=== PATIENT | female | born 1945 | race Caucasian/White ===

== ENCOUNTER → 2020-07-14 | Outpatient (CLI) | payer MEDICARE, BC, SELFPAY ==
[2020-07-14 14:49] VITALS: BMI 23.8
== END | disposition home or self-care (01) ==
PROVIDERS: PCP Family Medicine; Referring Provider Nurse Practitioner Women's Health; Visit Provider Nurse Practitioner Women's Health
DX: N39.0 Urinary tract infection, site not specified (principal)
CPT/HCPCS: 87077; 87086; 87088; 87186

== ENCOUNTER 2020-08-24 13:33 | Emergency (ER) | payer MEDICARE, BC, SELFPAY ==
[2020-08-24 13:35] VITALS: BP 133/79; PULSE 90; RESP 16; TEMP 36.6; O2SAT 94; BMI 24.0
--- NOTE | 2020-08-24 13:48 | ED.VIS.GEN ---
History of Present Illness Chief Complaint: Diarrhea Informant: Patient Narrative: 75-year-old female presenting with diarrhea. Her diarrhea was initially watery and started about Tuesday of last week. This makes her symptoms about 5 days. Patient took Imodium for the last 2 days and her diarrhea is resolving. She states that she is getting some stomach cramping. She has decreased appetite without nausea or vomiting. Patient does state that she was on antibiotics May for a UTI as well as a dental infection. Patient denies fever, chills. Patient has no urinary complaints. - Past Medical History (1) HTN (hypertension) Status: Chronic Past Medical History - Allergies and Home Meds Allergies/Adverse Reactions: Allergies lisinopril Allergy (Verified 08/24/20 13:38) Other Primary Care Physician: Jose Garay III, MD [Primary Care Provider] - Prior records reviewed: Yes Past Medical History: - - Reviewed in problem list Surgical History: - Lives: With Family Smoking Status: Former smoker Alcohol: None Drugs: None - Family History Maternal Family History: Family History (Last Updated 07/14/20 @ 14:54 by Stephanie Lagunas) Mother Heart disease Lung cancer Father Bladder cancer Family History: Reports: - - mother with heart problems cabg, lung cancer Paternal Family History: Family History (Last Updated 07/14/20 @ 14:54 by Stephanie Lagunas) Mother Heart disease Lung cancer Father Bladder cancer Family History: Reports: - - father with strokes Review of Systems General: Denies: Chills, Fever, Sweats Eyes: Denies: Visual changes - bilaterally, Diplopia ENT: Denies: Rhinorrhea, Sore throat Cardiovascular: Denies: Chest pain, Palpitations Respiratory: Denies: Dyspnea, Cough, Dyspnea on exertion Gastrointestinal: Reports: Abdominal pain - Cramping, Diarrhea, Constipation, - - Decreased appetite. Denies: Nausea, Vomiting Genitourinary: Denies: Dysuria, Hematuria, Frequency Musculoskeletal: Denies: Myalgias, Back pain, Extremity Pain Skin: Denies: Rash, Wounds Neurological: Denies: Headache, Weakness, Numbness Endocrine: Denies: Polyuria, Polydipsia Physical Exam Vital Signs/Narrative: Vital Signs Temp Pulse Resp BP Pulse Ox 08/24/20 13:35 97.9 F 90 16 133/79 H 94 Inital Vital Signs reviewed: Yes General: Well nourished, No Acute Distress Head: Normocephalic, Atraumatic Eyes: Perrl, EOMI. Negative for: Scleral icterus ENT: Moist mucous membranes, No rhinorrhea Cardiovascular: Regular rate, Regular rhythm Respiratory: No distress, CTA bilaterally Abdomen: Soft, Nontender, Nondistended Extremities: Nontender, No edema Skin: Normal color, No rash Neurological: Alert, Oriented x3, Cranial nerves II-XII grossly intact Psychological: Normal affect, Normal Mood Diagnostic/Tx/Re-eval Laboratory Data 08/24/20 08/24/20 14:05 14:05 WBC 11.4 H RBC 4.33 Hgb 12.3 Hct 35.7 L MCV 82.4 MCH 28.4 MCHC 34.5 RDW Std Deviation 36.1 RDW Coeff of Vilma 11.9 Plt Count 320 MPV 10.1 Immature Gran % (Auto) 0.800 Neut % (Auto) 79.5 H Lymph % (Auto) 6.2 L [place] % (Auto) 12.5 H Eos % (Auto) 0.2 Baso % (Auto) 0.8 Absolute Neuts (auto) 9.1 H Absolute Lymphs (auto) 0.71 L Nucleated RBC % 0 Sodium 126 L Potassium 2.4 L* Chloride 89 L Carbon Dioxide 29.0 Anion Gap 8 BUN 8 Creatinine 0.59 Estim Creat Clear Calc 40.21 Est GFR (MDRD) Af Amer 128 Est GFR (MDRD) Non-Af 106 BUN/Creatinine Ratio 13.6 Glucose 158 H Calcium 8.7 Magnesium 1.9 Total Bilirubin 0.60 AST 23 ALT 18 Alkaline Phosphatase 74 Total Protein 6.5 Albumin 2.7 L Globulin 3.8 Albumin/Globulin Ratio 0.7 L - Medical Decision Making 75-year-old female with recent history of diarrhea which is now improving presenting for stomach cramping. Her vital signs are stable and she is afebrile. Her physical exam is normal and she has no reproducible abdominal pain. She states that her diarrhea has turned into constipation after taking Imodium x2 2 days ago, and Imodium x1 yesterday. She does states that she is having bowel movements. No fevers, chills, nausea, vomiting. Lab work is significant for hypokalemia with a potassium of 2.4. She will be given 40 mEq IV as well as 40 mEq p.o. and then discharged home with 1 more dose for tomorrow. I did discuss with her that she should probably stop taking the Imodium and see if she starts having better bowel movements as replacing her potassium may help. She is amenable this plan and she will follow up with her PCP. Impression: 1. Abdominal cramping 2. Hypokalemia ED Disposition - Plan for ED Patient: Prescriptions: Potassium Chloride 40 meq PO X1 #1 capsule.er Transmission Status: Pending to [facility]/pharmacy #[id number] Referrals: Jose Garay III, MD [Primary Care Provider] -
[2020-08-24 14:14] LABS: Absolute Lymphocyte Count 0.71 X10^3/uL (0.83-4.51); Absolute Neutrophil Count 9.1 X10^3/uL (2.0-7.7); Basophil# 0.09 X10^3/uL; Basophil% 0.8 % (0-1); Eosinophil# 0.02 X10^3/uL; Eosinophils% 0.2 % (0-5); Hematocrit 35.7 % (37-47); Hemoglobin 12.3 g/dL (12.0-15.0); Lymphocyte # 0.71 X10^3/ul (4.0); Lymphocyte % 6.2 % (19-41); Mean Corp Hgb Conc 34.5 g/dL (32-36); Mean Corpuscular Hgb 28.4 pg (27.0-32.0); Mean Corpuscular Volume 82.4 fL (81-99); Mean Platelet Vol. 10.1 fl (6.2-12.0); Monocyte# 1.42 X10^3/uL; Monocyte% 12.5 % (0-10); NRBC Flagged by Analyzer 0 % (0-5); Neutrophil # 9.05 X10^3/uL (2.7-7.7); Neutrophil % 79.5 % (47-70); Platelet Count 320 K/mm3 (150-450); RBC Distribution Width CV 11.9 % (11.6-14.6); RBC Distribution Width SD 36.1 fl (35.1-43.9); Red Blood Count 4.33 M/mm3 (4.2-5.4); White Blood Count 11.4 K/mm3 (4.4-11.0)
[2020-08-24 14:35] LABS: ALB/GLOB Ratio 0.7 RATIO (0.9-2.4); AST(SGOT) 23 U/L (15-37); Alanine Aminotransfer ALT/SGPT 18 U/L (13-56); Albumin, Serum 2.7 g/dL (3.2-5.0); Alkaline Phosphatase 74 U/L (45-117); Anion Gap 8 (5-15); BUN 8 mg/dL (7-18); BUN/Creat Ratio 13.6 RATIO (10-20); Calcium,Total 8.7 mg/dL (8.5-10.1); Chloride 89 mmol/L (98-107); Creatinine, Serum 0.59 mg/dL (0.55-1.02); EST Glomerular Filtration Rate 106 mL/min (>60); Est Glom Filt Rate - Afr Amer 128 mL/min (>60); Estimated Creatinine Clearance 40.21 ml/min; Globulin 3.8 g/dL (2.2-4.2); Glucose 158 mg/dL (74-106); Magnesium 1.9 mg/dL (1.6-2.6); Potassium 2.4 mmol/L (3.5-5.1); Protein, Total 6.5 g/dL (6.4-8.2); Sodium Level 126 mmol/L (136-145)
[2020-08-24 16:00] VITALS: BP 115/61; PULSE 82; RESP 16; O2SAT 91
[2020-08-24] MEDS: Potassium Chloride 10mEq/100mL 10 MEQ/100 ML IV.SOLN. 100 MEQ IV BOLUS ×4 (17:57→20:55)
[2020-08-24 18:06] VITALS: RESP 16
[2020-08-24 20:00] VITALS: BP 115/67; PULSE 74; RESP 15; O2SAT 92
--- NOTE | 2020-08-25 11:39 | ED.RN ---
PER DR RUBY, POTASSIUM CHLORIDE 40MEQ PO X1 DOSE CALLED TO [facility] ON [facility]
== END 2020-08-24 22:12 | disposition home or self-care (01) ==
PROVIDERS: Emergency Provider Student in an Organized Health Care Education/Training Program; PCP Family Medicine
DX: R10.9 Unspecified abdominal pain (principal); E87.6 Hypokalemia; R19.7 Diarrhea, unspecified; K59.00 Constipation, unspecified; I10 Essential (primary) hypertension; Z87.440 Personal history of urinary (tract) infections; Z87.891 Personal history of nicotine dependence
CPT/HCPCS: 80053; 83735; 85025; 96361; 96365; 96366; 99282; J7030; A4216

== ENCOUNTER 2020-09-28 12:07 | Inpatient (IN) | payer MEDICARE, BC, SELFPAY ==
[2020-09-22 10:57] VITALS: BMI 23.2
[2020-09-28] VITALS (10 sets, daily range): BP systolic 137–167; BP diastolic 83–106; PULSE 104–121; RESP 13–24; TEMP 36.4–36.9; O2SAT 95–99; BMI 24.7; BMI 22.1
--- NOTE | 2020-09-28 12:14 | CT_ITS ---
STUDY: CT BRAIN WITHOUT CONTRAST REASON FOR EXAM: Female, 75 years old. Altered mental status. Amnesia. Stroke alert. RADIATION DOSAGE (If Supplied By Facility): CTDIvol = ( 45 ) mGy, DLP = ( 779 ) mGycm TECHNIQUE: Transaxial CT imaging of the brain was performed without administration of intravenous contrast material. Individualized dose optimization techniques were used for this CT. COMPARISON: 06/24/15 FINDINGS: There is no acute bleed or infarct. There are stable chronic ischemic and atrophic changes. The ventricles are normal in configuration. There is no hydrocephalus. The visualized paranasal sinuses are clear. The mastoid air cells are well aerated. There is no skull fracture. CT/STROKE Brain/Head without Cont IMPRESSION: Stable chronic ischemic and atrophic changes. No acute intracranial abnormality. N.B. : The above information has been verbally conveyed by Yusef Bobo MD to Rigo Watson on 09/28/2020 12:57:08 (ET). Electronically Signed: Yusef Bobo MD at 12:58 EST Tel , Service support ,
--- NOTE | 2020-09-28 12:14 | EKG12_ITS ---
Test Reason : NEURO Blood Pressure : / mmHG Vent. Rate : 102 BPM Atrial Rate : 102 BPM P-R Int : 136 ms QRS Dur : 094 ms QT Int : 374 ms P-R-T Axes : 041 051 041 degrees QTc Int : 487 ms Sinus tachycardia with occasional Premature ventricular complexes and Fusion complexes Otherwise normal ECG Confirmed by JOSEPH LOCKWOOD, NESTOR ([id number]), health editor JOSE G DUMONT ([id number]) on 09/29/2020 1:10:34 PM Referred By: MR Confirmed By:NESTOR RUIZ MD
--- NOTE | 2020-09-28 12:30 | RAD_ITS ---
STUDY: X-RAY CHEST REASON FOR EXAM: Female, 75 years old. Altered mental status TECHNIQUE: Frontal view of the chest COMPARISON: None. FINDINGS: The lungs are clear. There are no pleural effusions. There is no pneumothorax. The heart is normal in size. The visualized osseous structures are within normal limits. RAD/Chest 1 View IMPRESSION: No acute thoracic pathology. Electronically Signed: Yusef Bobo MD at 12:51 EST Tel , Service support ,
--- NOTE | 2020-09-28 12:36 | NUR.TO.PHY ---
DAUGHTER ARIADNA SULLIVAN CALLED AND LEFT NUMBER FOR ANY QUESTIONS. HER NUMBER IS [phone]
[2020-09-28 12:42] LABS: Absolute Lymphocyte Count 1.53 X10^3/uL (0.83-4.51); Absolute Neutrophil Count 5.1 X10^3/uL (2.0-7.7); Basophil# 0.04 X10^3/uL; Basophil% 0.6 % (0-1); Eosinophil# 0.01 X10^3/uL; Eosinophils% 0.1 % (0-5); Hematocrit 42.3 % (37-47); Hemoglobin 13.6 g/dL (12.0-15.0); Lymphocyte # 1.53 X10^3/ul (4.0); Lymphocyte % 21.3 % (19-41); Mean Corp Hgb Conc 32.2 g/dL (32-36); Mean Corpuscular Hgb 28.8 pg (27.0-32.0); Mean Corpuscular Volume 89.6 fL (81-99); Mean Platelet Vol. 10.4 fl (6.2-12.0); NRBC Flagged by Analyzer 0 % (0-5); Neutrophil # 5.09 X10^3/uL (2.7-7.7); Neutrophil % 70.9 % (47-70); Platelet Count 251 K/mm3 (150-450); RBC Distribution Width CV 13.6 % (11.6-14.6); RBC Distribution Width SD 44.6 fl (35.1-43.9); Red Blood Count 4.72 M/mm3 (4.2-5.4); White Blood Count 7.2 K/mm3 (4.4-11.0)
[2020-09-28 12:44] LABS: Anion Gap 8 (5-15); BUN 15 mg/dL (7-18); BUN/Creat Ratio 22.5 RATIO (10-20); Calcium,Total 9.6 mg/dL (8.5-10.1); Chloride 107 mmol/L (98-107); Creatinine, Serum 0.67 mg/dL (0.55-1.02); EST Glomerular Filtration Rate 91 mL/min (>60); Est Glom Filt Rate - Afr Amer 111 mL/min (>60); Estimated Creatinine Clearance 40.21 ml/min; Glucose 123 mg/dL (74-106); Potassium 3.2 mmol/L (3.5-5.1); Sodium Level 140 mmol/L (136-145)
[2020-09-28 12:46] LABS: Prothrombin Time (Protime)PT. 12.4 SECONDS (11.7-14.9)
[2020-09-28 12:47] LABS: Partial Thromboplast Time 29.7 Seconds (24.1-36.2)
[2020-09-28 13:24] LABS: Mucous, Urine 0 SEEN /hpf (<or=2+); Red Blood Cells-Urine 0 SEEN /hpf (0-5); Squamous Epithelial Cells - UA 0 SEEN /hpf (5-10); White Blood Cells 0 SEEN /hpf (0-5)
[2020-09-28 13:28] LABS: Color, Urine Yellow (Yellow); Glucose, Dipstick Normal (Normal); Ketone-Dipstick 5 mg/dl (Negative); Leukocyte Esterase-Dipstick Negative /ul (Negative); Nitrite-Dipstick Positive (Negative); Occult Blood-Urine 50 /ul (Negative); Protein-Dipstick 15 mg/dl (Negative); Urine Bilirubin Dipstick Negative (Negative); Urine Clarity Clear (Clear); Urine Urobilinogen Normal (Normal)
[2020-09-28 13:47] LABS: Bacteria 2+ /hpf (None Seen)
--- NOTE | 2020-09-28 14:04 | NURSING ---
DR ADOLPH CAI
--- NOTE | 2020-09-28 14:06 | ED.VIS.GEN ---
History of Present Illness Chief Complaint: Neuro S/Sx Narrative: Patient presenting secondary to amnesia. Patient has a underlying history of hypertension. She also has a prior history of transient global amnesia back in 2014 with a negative work-up and thoughts that this was from a TIA. Patient reports that this morning she woke up and she was having issues with forgetfulness. Her stated that she set the newspaper on the kitchen table, and shortly thereafter asked why the newspaper was there even though she was the one who was actually reading it. She was repetitively forgetting things. She denies any visual changes speech difficulty numbness or weakness. No recent head injuries. No recent infectious signs or symptoms. Review of systems otherwise negative. Past Medical History - Allergies and Home Meds Allergies/Adverse Reactions: Allergies lisinopril Allergy (Verified 09/28/20 12:13) Other Prior records reviewed: Yes Past Medical History: - - Transient global amnesia, hypertension Surgical History: - Lives: Spouse/ Significant Other Smoking Status: Never smoker Alcohol: None Drugs: None - Family History Maternal Family History: Family History (Last Reviewed 09/22/20 @ 10:59 by Jaquelin Villasenor) Mother Heart disease Lung cancer Father Bladder cancer Family History: Reports: - - mother with heart problems cabg, lung cancer Paternal Family History: Family History (Last Reviewed 09/22/20 @ 10:59 by Jaquelin Villasenor) Mother Heart disease Lung cancer Father Bladder cancer Family History: Reports: - - father with strokes Review of Systems All systems negative except as indicated General: Denies: Chills, Fever, Sweats Eyes: Denies: Visual changes - bilaterally, Diplopia ENT: Denies: Rhinorrhea, Sore throat Cardiovascular: Denies: Chest pain, Palpitations Respiratory: Denies: Dyspnea, Cough, Dyspnea on exertion Gastrointestinal: Denies: Abdominal pain, Nausea, Vomiting, Diarrhea, Melena, Hematochezia Genitourinary: Denies: Dysuria, Hematuria, Frequency Musculoskeletal: Denies: Back pain, Extremity Pain Skin: Denies: Rash, Wounds Neurological: Reports: - - Forgetfulness Physical Exam Vital Signs/Narrative: Vital Signs Temp Pulse Resp BP Pulse Ox 09/28/20 12:14 104 H 20 H 160/106 H 96 09/28/20 12:08 97.9 F 121 H 24 H 160/106 H 99 Inital Vital Signs reviewed: Yes General: Well nourished, Well developed, No Acute Distress, - - Anxious Head: Normocephalic, Atraumatic Eyes: Perrl, EOMI ENT: Moist mucous membranes, No rhinorrhea Neck: Supple, Nontender Cardiovascular: Regular rhythm, No murmurs, Tachycardia Respiratory: No distress, CTA bilaterally, Chest nontender Abdomen: Soft, Nontender, Nondistended, Normal bowel sounds Back: Nontender, Normal Inspection Extremities: Nontender, No edema Skin: Normal color, No rash Neurological: Alert, Oriented x3, Cranial nerves II-XII grossly intact, Normal Strength, Normal Sensation, - - NIH 0 Psychological: Normal affect, Normal Mood, - - Anxious Diagnostic/Tx/Re-eval Clinical Impression(s) from Imaging Studies Brain CT 09/28/20 12:14 IMPRESSION: Stable chronic ischemic and atrophic changes. No acute intracranial abnormality. N.B. : The above information has been verbally conveyed by Yusef Bobo MD to Rigo Watson on 09/28/2020 12:57:08 (ET). Electronically Signed: Yusef Bobo MD at 12:58 EST Tel , Service support , ADDENDUM: 09/28/20 1305 IMPRESSION: Stable chronic ischemic and atrophic changes. No acute intracranial abnormality. N.B. : The above information has been verbally conveyed by Yusef Bobo MD to Rigo Watson on 09/28/2020 12:57:08 (ET). Electronically Signed: Yusef Bobo MD at 12:58 EST Tel , Service support , Chest X-Ray 09/28/20 12:30 IMPRESSION: No acute thoracic pathology. Electronically Signed: Yusef Bobo MD at 12:51 EST Tel , Service support , Laboratory Data 09/28/20 09/28/20 09/28/20 12:20 12:20 12:20 WBC 7.2 RBC 4.72 Hgb 13.6 Hct 42.3 MCV 89.6 MCH 28.8 MCHC 32.2 RDW Std Deviation 44.6 H RDW Coeff of Vilma 13.6 Plt Count 251 MPV 10.4 Immature Gran % (Auto) 0.100 Neut % (Auto) 70.9 H Lymph % (Auto) 21.3 [place] % (Auto) 7.0 Eos % (Auto) 0.1 Baso % (Auto) 0.6 Absolute Neuts (auto) 5.1 Absolute Lymphs (auto) 1.53 Nucleated RBC % 0 PT 12.4 INR 1.0 APTT 29.7 Sodium 140 Potassium 3.2 L Chloride 107 Carbon Dioxide 25.0 Anion Gap 8 BUN 15 Creatinine 0.67 Estim Creat Clear Calc 40.21 Est GFR (MDRD) Af Amer 111 Est GFR (MDRD) Non-Af 91 BUN/Creatinine Ratio 22.5 H Glucose 123 H Calcium 9.6 Troponin I < 0.015 Urine Color Urine Clarity Urine pH Ur Specific [place] Urine Protein Urine Glucose (UA) Urine Ketones Urine Occult Blood Urine Nitrite Urine Bilirubin Urine Urobilinogen Ur Leukocyte Esterase Urine RBC Urine WBC Ur Squamous Epith Cells Urine Bacteria Urine Mucus 09/28/20 13:13 WBC RBC Hgb Hct MCV MCH MCHC RDW Std Deviation RDW Coeff of Vilma Plt Count MPV Immature Gran % (Auto) Neut % (Auto) Lymph % (Auto) [place] % (Auto) Eos % (Auto) Baso % (Auto) Absolute Neuts (auto) Absolute Lymphs (auto) Nucleated RBC % PT INR APTT Sodium Potassium Chloride Carbon Dioxide Anion Gap BUN Creatinine Estim Creat Clear Calc Est GFR (MDRD) Af Amer Est GFR (MDRD) Non-Af BUN/Creatinine Ratio Glucose Calcium Troponin I Urine Color Yellow Urine Clarity Clear Urine pH 7.0 Ur Specific [place] 1.010 Urine Protein 15 H Urine Glucose (UA) Normal Urine Ketones 5 H Urine Occult Blood 50 H Urine Nitrite Positive H Urine Bilirubin Negative Urine Urobilinogen Normal Ur Leukocyte Esterase Negative Urine RBC 0 SEEN Urine WBC 0 SEEN Ur Squamous Epith Cells 0 SEEN Urine Bacteria 2+ Urine Mucus 0 SEEN - EKG Initial EKG Interpretation: - - Sinus tachycardia with occasional PVCs noted, isoelectric ST segments normal T waves normal HI and QTc intervals - Medical Decision Making Patient presented secondary to forgetfulness. Stroke team was not activated her NIH stroke scale was 0, but neurologic work-up was obtained. EKG showed some PVCs otherwise no ischemic changes. CT imaging of the brain was negative. 1 view chest x-ray by my personal interpretation is negative. No abnormal lab work. Patient's urinalysis shows some positive nitrates but no evidence of leukocytes. Patient does have some risk factors for the possibility of cerebrovascular disease, although this would be an atypical presentation. I believe the patient requires admission. Patient be admitted for further work-up and treatment. ED Disposition - Plan for ED Patient: Disposition: Acute Care Hospital [facility] Diagnosis: Amnesia
--- NOTE | 2020-09-28 14:14 | NURSING ---
PCU OBS AMNESIA ADOLPH
[2020-09-28] MEDS: ALPRAZolam 0.5 MG Tablet PO ×2 (16:03→21:38)
[2020-09-28] MEDS: 0.9% Saline Lock 10 ML Syringe IV (16:04)
--- NOTE | 2020-09-28 16:12 | HP.PCM_ITS ---
History of Present Illness Date of Admission: 09/28/20 Mrs. Zhao is a 75 year old WF with past medical history of hypertension, hyperlipidemia, and severe anxiety who presented to the emergency department at [facility] on 09/28/2020 after experiencing an episode of amnesia this morning. Per discussion with the patient and her she was going about her normal morning and had been sitting at the table reading the daily record while he was outside shoveling snow and when he came into the house she had a dazed look on her face and asked why the paper was on the table to which she replied because you were reading it and she did not remember reading the paper and she also asked him where he had been and he told her as discussed prior to him going outside he went out to shovel the snow. The patient's decided to bring her to the emergency department the patient went upstairs changed her close came down and they drove into the hospital by the time they arrived at the hospital her mental status had returned to baseline. He states that this happened approximately 6 years ago and the patient confirms this. 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 She has had no episodes since that point in time. She denies any tingling, numbness, or weakness and the confirms she had no other symptoms besides memory loss. Upon exam the patient seems very anxious and is tearful at times and and confirms that she is a very anxious person at baseline and has been overtly stressed in the last 2 months related to COVID-19 and an upcoming urological surgery that she has pending. She has been so anxious that her urologist has prescribed Xanax for her her last dose taken was on Tuesday. Her vital signs are stable other than some mild tachycardia and hypertension. Her labs show a normal CBC, her BMP is only significant for mild hypokalemia with a potassium level of 3.2 and she had a UA that shows positive nitrite and 2+ bacteria but the patient is asymptomatic for dysuria and admits that she has chronic urinary issues and that is what she is having surgery for in 2 weeks. Her EKG is unremarkable and an initial troponin was less than 0.015. She will be admitted to PCU for further work-up. Past Medical History Past Medical History (Chronic Problems): Chronic Problems (Last Reviewed 09/22/20 @ 10:59 by Jaquelin Villasenor) HTN (hypertension) (Chronic) Allergies lisinopril Allergy (Verified 09/28/20 12:13) Other Home Medications: Ambulatory Orders Medication Instructions Recorded alprazolam 0.5 mg tablet 0.5 mg PO BID PRN #20 tab 09/22/20 amlodipine 5 mg tablet 5 mg PO DAILY 09/22/20 atorvastatin 40 mg tablet 40 mg PO DAILY 09/22/20 Surgical History: Surgical History (Last Reviewed 09/28/20 @ 16:[address] Nessa Baac DO) History of delivery Z98.891 x3 History of hernia repair Z98.890, Z87.19 Surgical History: - Psychiatric History: Anxiety Lives: Spouse/ Significant Other Smoking Status: Former smoker Alcohol: None Drugs: None - *Family History Maternal Family History: Family History (Last Reviewed 09/28/20 @ 16:[address] Nessa Baca DO) Mother Heart disease Lung cancer Father Bladder cancer History Items: - - mother with heart problems cabg, lung cancer Paternal Family History: Family History (Last Reviewed 09/28/20 @ 16:[address] Nessa Baca DO) Mother Heart disease Lung cancer Father Bladder cancer History Items: - - father with strokes Review of Systems Constitutional: Denies: Anorexia, Chills, Fever, Night Sweats, Malaise, Weakness, Weight Change, Fatigue Eyes: Denies: Cataracts, Conjunctivae Inflammation, Double vision, Drainage, Eyelid Inflammation, Pain, Redness HEENT: Denies: Difficulty Hearing, Difficulty Swallowing, Ear Pain, Eye Pain, Head Aches, Nasal bleeding, Nasal Congestion, Post Nasal Drip, Sinus Congestion, Sinus Drainage, Sore Throat, Visual Changes Cardiovascular: Denies: Chest Pain, Claudication, Chest Tightness, Edema, Heaviness, Light Headedness, Orthopnea, Palpitations, Paroxysmal Noc. Dyspnea, Syncope Respiratory: Denies: Cough, Hemoptysis, Pleuritic Pain, Shortness of Breath, Shortness of breath at rest, Shortness of breath upon exertion, Sputum production, Wheezing Gastrointestinal: Denies: Abdominal Pain, Constipation, Diarrhea, Dyspepsia, Hematemesis, Hematochezia, Nausea, Melena, Vomiting Genitourinary: Reports: Incontinence. Denies: Dysuria, Frequency, Hematuria, Hesitancy, Nocturia, Retention, Urgency Musculoskeletal: Denies: Back Pain, Joint Pain, Joint stiffness, Joint swelling, Joint Tenderness, Muscle pain, Neck Pain Skin: Denies: Dryness, Jaundice, Lesions, Pruritis, Rash, Skin Changes, Wounds Neurological: Reports: Confusion - resolved. Denies: Balance problems, Blurred vision, Double vision, Change in Speech, Slurred speech Psychiatric: Reports: Anxiety. Denies: Depression Endocrine: Denies: Change in Body Habitus, Heat/ Cold Intolerance, Polydipsia, Polyuria Hematologic/ Lymphatic: Denies: Adenopathy, Anemia, Easy Bruising, Easy Bleeding, Petechiae, Purpura VTE Information - Inpt Only VTE Present on Admission: No VTE Mechan Device Prophylaxis: SCD's VTE Pharm Prophylaxis ordered?: Yes - Physical Exam Vitals/I&O's: Vital Signs Temp Pulse Resp BP Pulse Ox 98.1 F 104 H 18 160/83 H 96 09/28/20 15:25 09/28/20 15:25 09/28/20 15:25 09/28/20 15:25 09/28/20 15:25 Oxygen Delivery Method Room Air Weight: 55.701 kg Body Mass Index (BMI) 22.1 Finger Stick Blood Glucose 107 General: Alert, Oriented x3, Cooperative, No apparent distress, Well developed, Well nourished, - - Older white female, at bedside, patient very anxious and intermittently tearful HEENT: Atraumatic, PERRLA, EOMI, Normocephalic, EAC Clear Oral: Moist Mucosa, No Gingival or Mucosal Lesions/ Ulcerations, - - Her dentition Neck: Supple, No JVD, Negative Carotid Bruits, Negative Hepatojugular Reflux, No Nodes, No Nuchal Rigidity, Trachea Midline, Thyroid Normal Size and Texture Lungs: Clear to auscultation, Normal air movement, No rhonchi, No wheeze, No rales Cardiovascular: Regular rate, Regular Rhythm, Normal S1, Normal S2, No murmurs, No Ectopic Activity, No rub noted, No Gallop Abdomen: Bowel Sounds Present, Soft, Non Tender, Non-Distended, No Hepato- splenomegaly Extremities: No clubbing, No cyanosis, No edema, Capillary Refill Less than 3 Seconds, Peripheral Pulses Normal Skin: No rashes, No breakdown Musculoskeletal: No Tenderness to Palpation of Joints or Extremities, No Muscle Wasting, Arthritic Changes Lymphatic: No Cervical, Supraclavicular, or Inguinal Adenopathy Neurological: Cranial nerves II-XII grossly intact, Deep Tendon Reflexes 2+/4 and Symmetrical, Neuro grossly intact, Motor Exam 5/5 strength throughout, Muscle tone normal, Sensory exam intact to light touch and pain, Coordination normal Psych/Mental Status: Appropriate, Anxious Laboratory Results 09/28/20 12:20: WBC 7.2, RBC 4.72, Hgb 13.6, Hct 42.3, MCV 89.6, MCH 28.8, MCHC 32.2, RDW Std Deviation 44.6 H, RDW Coeff of Vilma 13.6, Plt Count 251, MPV 10.4, Immature Gran % (Auto) 0.100, Neut % (Auto) 70.9 H, Lymph % (Auto) 21.3, Harlan % (Auto) 7.0, Eos % (Auto) 0.1, Baso % (Auto) 0.6, Absolute Neuts (auto) 5.1, Absolute Lymphs (auto) 1.53, Nucleated RBC % 0 09/28/20 12:20: PT 12.4, INR 1.0, APTT 29.7 09/28/20 12:20: Sodium 140, Potassium 3.2 L, Chloride 107, Carbon Dioxide 25.0, Anion Gap 8, BUN 15, Creatinine 0.67, Estim Creat Clear Calc 40.21, Est GFR (MDRD) Af Amer 111, Est GFR (MDRD) Non-Af 91, BUN/Creatinine Ratio 22.5 H, Glucose 123 H, Calcium 9.6, Troponin I < 0.015 09/28/20 13:13: Urine Color Yellow, Urine Clarity Clear, Urine pH 7.0, Ur Specific [place] 1.010, Urine Protein 15 H, Urine Glucose (UA) Normal, Urine Ketones 5 H, Urine Occult Blood 50 H, Urine Nitrite Positive H, Urine Bilirubin Negative, Urine Urobilinogen Normal, Ur Leukocyte Esterase Negative, Urine RBC 0 SEEN, Urine WBC 0 SEEN, Ur Squamous Epith Cells 0 SEEN, Urine Bacteria 2+, Urine Mucus 0 SEEN Current Medications Acetaminophen (Acetaminophen 325 Mg Tablet) 650 mg PO Q6H PRN PRN PRN Reason: Pain Score 1-10/Temp > 100.7 F Al Hydroxide/Mg Hydroxide (Mag Hydrox/Al Hydrox/Simeth 30 Ml Udc) 30 ml PO Q6H PRN PRN PRN Reason: Gastric Burning Albuterol Sulfate (Albuterol 2.5 Mg/3 Ml Vial.Neb.) 2.5 mg INHALATION Q2H PRN PRN PRN Reason: SOB/Wheezing Alprazolam (Alprazolam 0.5 Mg Tablet) 0.5 mg PO BID PRN PRN PRN Reason: anxiety Last Admin: 09/28/20 16:03 Dose: 0.5 mg Documented by: Amlodipine Besylate (Amlodipine 5 Mg Tablet) 5 mg PO DAILY NEIDA Aspirin (Aspirin 81 Mg Tab.Chew) 81 mg PO DAILY@0800 NEIDA Atorvastatin Calcium (Atorvastatin Calcium 40 Mg Tablet) 40 mg PO QHS NEIDA Enoxaparin Sodium (Enoxaparin 40 Mg/0.4 Ml Syringe) 40 mg SC DAILY NEIDA Hydralazine HCl (Hydralazine 20 Mg/Ml Vial) 5 mg IV Q30M PRN PRN Reason: to maintain BP goals Labetalol HCl (Labetalol (Prefilled) 20 Mg/4 Ml) 10 - 20 mg IV Q10M PRN PRN PRN Reason: to Maintain BP Goals Melatonin (Melatonin 3 Mg Tablet) 3 mg PO QHS PRN PRN PRN Reason: INSOMNIA Ondansetron HCl (Ondansetron 4 Mg/2 Ml Vial) 4 mg IV Q8H PRN PRN PRN Reason: NAUSEA/VOMITING Senna/Docusate Sodium (Senna/Docusate Sodium 1 Tablet) 2 tablet PO BID PRN PRN PRN Reason: Constipation Sodium Chloride (0.9% Saline Lock 10 Ml Syringe) 10 - 40 ml IV UD PRN PRN Reason: SALINE FLUSH Last Admin: 09/28/20 16:04 Dose: 10 ml Documented by: Assessment/Plan All Active Problems (Last Reviewed 09/22/20 @ 10:59 by Jaquelin Villasenor) Uterine procidentia (Acute) Pessary maintenance (Resolved) Cystocele with incomplete uterovaginal prolapse (Ruled-out) Amnesia episode -Symptoms are now resolved -NIH is zero -MRI and MRA in the a.m. -EEG -Check echo -Aspirin 81 mg daily -Suspect this may be related to her anxiety at baseline plus her worsening anxiety now -If work-up is negative would recommend follow-up with either psychiatry or neurology -Patient does have previous diagnosis of global transient amnesia Hypertension -Patient states that she has whitecoat hypertension -Continue amlodipine 5 mg daily -Patient was recently on triamterene but this was discontinued due to her bladder issues -May need to consider an increased dose of her Norvasc or additional hype antihypertensives if her blood pressure remains elevated -As needed hydralazine is available Hyperlipidemia -Continue atorvastatin Severe anxiety -Recommend psychiatric follow-up after discharge -Continue Xanax -Consider BuSpar DVT prophylaxis -Lovenox CODE STATUS -Full Inpatient E&M: 03428 Init Hosp L3
[2020-09-28] MEDS: Atorvastatin Calcium 40 MG Tablet PO (21:38)
[2020-09-28] MEDS: Senna/Docusate Sodium 1 Tablet 2 TABLET PO (21:38)
[2020-09-29] VITALS (10 sets, daily range): BP systolic 97–140; BP diastolic 72–85; PULSE 86–103; RESP 12–20; TEMP 36.9–37.2; O2SAT 92–100; BMI 22.1
--- NOTE | 2020-09-29 01:02 | PCS.PANDOC ---
PANDEMIC DOCUMENTATION INITIATED: Date: 09/28/2020 Time: 0930
[2020-09-29 02:38] LABS: Magnesium 1.9 mg/dL (1.6-2.6)
[2020-09-29 05:49] LABS: Absolute Lymphocyte Count 1.41 X10^3/uL (0.83-4.51); Absolute Neutrophil Count 3.2 X10^3/uL (2.0-7.7); Basophil# 0.04 X10^3/uL; Basophil% 0.7 % (0-1); Eosinophil# 0.11 X10^3/uL; Eosinophils% 2.1 % (0-5); Hematocrit 37.6 % (37-47); Hemoglobin 12.2 g/dL (12.0-15.0); Lymphocyte # 1.41 X10^3/ul (4.0); Lymphocyte % 26.4 % (19-41); Mean Corp Hgb Conc 32.4 g/dL (32-36); Mean Corpuscular Hgb 28.5 pg (27.0-32.0); Mean Corpuscular Volume 87.9 fL (81-99); Mean Platelet Vol. 10.4 fl (6.2-12.0); Monocyte# 0.55 X10^3/uL; Monocyte% 10.3 % (0-10); NRBC Flagged by Analyzer 0 % (0-5); Neutrophil % 59.9 % (47-70); Platelet Count 237 K/mm3 (150-450); RBC Distribution Width CV 13.7 % (11.6-14.6); RBC Distribution Width SD 44.3 fl (35.1-43.9); Red Blood Count 4.28 M/mm3 (4.2-5.4); White Blood Count 5.3 K/mm3 (4.4-11.0)
--- NOTE | 2020-09-29 05:55 | MRI_ITS ---
HISTORY: TIA, episode of amnesia COMPARISON: MRA neck 06/24/2015 TECHNIQUE: MR angiography of the neck was performed per department protocol without and with 13 mL Dotarem IV gadolinium. Nascet criteria using the distal ICAs for comparison were used for evaluation of stenoses. # of images incl. paperwork: 312 FINDINGS: CAROTID: RIGHT: Mild atherosclerotic changes of the carotid bifurcation. Cervical course of the internal carotid artery is within normal limits without high-grade/significant focal stenosis, aneurysm, or dissection. Normal CCA. Unremarkable ECA. LEFT: Mild atherosclerotic changes of the carotid bifurcation. Cervical course of the internal carotid artery is within normal limits without high-grade/significant focal stenosis, aneurysm, or dissection. Normal CCA. Unremarkable ECA. VERTEBRAL: Bilateral vertebral arteries have a normal appearance with co-dominance. OTHER: Origin of the great vessels are within normal limits. MRI/MRA Neck WITH and W/O Contrast IMPRESSION: 1. Unremarkable MRA of the neck. at 1216 Reported and signed by: Rigo Lopez MD Electronically Signed: Rigo Lopez MD at 12:15 EST Tel , Service support ,
--- NOTE | 2020-09-29 05:55 | MRI_ITS ---
HISTORY: TIA, episode of amnesia COMPARISON: MRI of brain performed same time, MRA brain 06/24/2015 TECHNIQUE: MR angiography of the brain was performed per department protocol without IV gadolinium. # of images incl. paperwork: 193 FINDINGS: Distal aspect of bilateral internal carotid arteries have a normal appearance without focal stenosis or aneurysmal dilatation. Proximal branches of bilateral anterior and middle cerebral arteries have a normal appearance. Flow signal is not seen within the anterior communicating artery. Basilar artery is normal in caliber without focal stenosis or basilar tip aneurysm. origin left IMMERSION METALCLEANER with mild hypoplasia left P1 segment, normal variant. Right IMMERSION METALCLEANER emanates from the basilar tip. Beyond the P1 segments, visualized proximal bilateral green end department supervisor have a normal appearance. Non-visualized right PCOM..The vertebrobasilar junction is intact. No aneurysm, acute branch occlusion, high-grade stenosis, or arteriovenous malformation. MRI/MRA Head ONLY without Contrast IMPRESSION: 1. Negative MRA of the brain. 2. origin left IMMERSION METALCLEANER with mild hypoplasia left P1 segment, normal variant. at 1128 Reported and signed by: Rigo Lopez MD Electronically Signed: Rigo Lopez MD at 11:27 EST Tel , Service support ,
[2020-09-29 06:18] LABS: ALB/GLOB Ratio 0.9 RATIO (0.9-2.4); AST(SGOT) 20 U/L (15-37); Alanine Aminotransfer ALT/SGPT 15 U/L (13-56); Alkaline Phosphatase 65 U/L (45-117); Anion Gap 7 (5-15); BUN 14 mg/dL (7-18); BUN/Creat Ratio 23.7 RATIO (10-20); Calcium,Total 9.4 mg/dL (8.5-10.1); Chloride 108 mmol/L (98-107); Cholesterol 158 mg/dL (200); Creatinine, Serum 0.59 mg/dL (0.55-1.02); EST Glomerular Filtration Rate 105 mL/min (>60); Est Glom Filt Rate - Afr Amer 127 mL/min (>60); Estimated Creatinine Clearance 38.44 ml/min; Globulin 3.5 g/dL (2.2-4.2); Glucose 88 mg/dL (74-106); High Density Lipoprotein 73 mg/dL; Magnesium 2.3 mg/dL (1.6-2.6); Phosphorus 3.8 mg/dL (2.5-4.9); Potassium 3.6 mmol/L (3.5-5.1); Protein, Total 6.5 g/dL (6.4-8.2); Sodium Level 141 mmol/L (136-145); Thyroid Stim Hormone (TSH) 2.32 uIU/mL (0.358-3.74); Triglycerides 97 mg/dL; Very Low Density Lipoprotein 19 mg/dL (5-40)
[2020-09-29] MEDS: LORazepam 2 MG/ML Syringe 0.5 MG IV (08:58)
[2020-09-29] MEDS: 0.9% Saline Lock 10 ML Syringe IV (08:58)
--- NOTE | 2020-09-29 09:00 | MRI_ITS ---
HISTORY: TIA, episode of amnesia COMPARISON: CT brain 09/28/2020, MRI brain 06/24/2015 TECHNIQUE: Multisequence multiplanar MR imaging of the brain per department protocol without IV gadolinium. # of images including paperwork: 281 FINDINGS: BRAIN: Diffusion-weighted imaging shows no acute infarct. No remote parenchymal infarct. No parenchymal hemorrhage, intra-axial mass, mass effect, or midline shift. No abnormal extra-axial fluid collections. Minimal periventricular white matter changes as seen by tiny foci of hyperintense FLAIR and T2 signal. VENTRICLES: Ventricles are normal in size and configuration. No hydrocephalus. PARANASAL SINUSES: Clear. MASTOIDS: Mastoid air cells are clear. ORBITS: Orbits are unremarkable. MRI/Brain without Contrast IMPRESSION: 1. No acute infarct or acute intracranial disease. 2. Minimal chronic small vessel ischemic white matter changes, stable. 3. Otherwise, unremarkable noncontrast MR examination of brain. at 1119 Reported and signed by: Rigo Lopez MD Electronically Signed: Rigo Lopez MD at 11:18 EST Tel , Service support ,
--- NOTE | 2020-09-29 10:43 | NURSING ---
PT TOLERATED MRI WELL WITHOUT ANY COMPLAINTS. STEADY GAIT FROM MRI TABLE TO BED. TRANSPORTER CALLED TO RETURN PT TO PCU.
--- NOTE | 2020-09-29 11:00 | NURSING ---
NIH late d/t pt being off unit for MRI & MRA
[2020-09-29] MEDS: amLODIPine 5 MG Tablet PO (11:05)
--- NOTE | 2020-09-29 11:59 | ECHOD_ITS ---
Reason For Study: TIA/CVA Procedure This was a 2D Doppler, Color Flow transthoracic echocardiogram. Exam performed portable in patient room. Left Ventricle Normal LV size. Left ventricular systolic function is normal. The estimated ejection fraction is 60 %. Stage 1 diastolic dysfunction. No regional wall motion abnormalities noted. Right Ventricle Normal RV size. Normal systolic function. Atria Normal left atrium. Normal right atrium. Bubble contrast study negative for right to left interatrial shunt. Mitral Valve Mild diffuse mitral valve thickening. Mild (1+) mitral valve insufficiency. Tricuspid Valve Normal tricuspid valve. Mild (1+) tricuspid valve insufficiency. Pulmonary artery systolic pressure is 27 mmHg. Pulmonic Valve Normal pulmonic valve. Great Vessels Normal aortic root. The pulmonary artery is normal size. Normal inferior vena cava. Pericardium/Pleural No pericardial effusion. Medication Performed a rapid injection of agitated mix of 9 cc saline and 1cc air to assess for atrial septal defect. MMode/2D Measurements & Calculations LVIDd: 5.1 cm IVSd: 1.1 cm Ao root diam: 2.9 cm LVIDs: 3.1 cm LVPWd: 1.1 cm RVDd: 2.7 cm FS: 39.3 % LAV(MOD-bp): 39.1 ml LVAd ap4: 20.5 cm2 SV(MOD-sp4): 29.8 ml LAV(MOD-bp) Indexed: 25.0 ml/m2 EDV(MOD-sp4): 53.2 ml LAV(MOD-sp2): 35.8 ml EDV(sp4-el): 54.6 ml LAV(MOD-sp4): 37.1 ml LVAs ap4: 12.3 cm2 ESV(MOD-sp4): 23.4 ml ESV(sp4-el): 23.1 ml EF(MOD-sp4): 56.0 % EF(sp4-el): 57.6 % SV(sp4-el): 31.4 ml LA A4 area: 15.4 cm2 LA dimension(2D): 3.8 cm RA A4 area: 11.5 cm2 Doppler Measurements & Calculations MV E max raza: 37.7 cm/sec Lat Peak E' Raza: 6.8 cm/sec Med Peak E' Raza: 2.1 cm/sec MV A max raza: 101.4 cm/sec E/E' lat: 5.6 E/E' med: 18.3 MV E/A: 0.37 Ao V2 max: 137.2 cm/sec LV V1 max: 73.6 cm/sec PA V2 max: 72.2 cm/sec Ao max P.5 mmHg LV V1 max P.2 mmHg Ao V2 mean: 95.9 cm/sec Ao mean P.0 mmHg Ao V2 VTI: 25.3 cm TR max raza: 247.0 cm/sec TR max P.4 mmHg Interpretation Summary Normal LV size. Left ventricular systolic function is normal. The estimated ejection fraction is 60 %. Stage 1 diastolic dysfunction. Bubble contrast study negative for right to left interatrial shunt. Pulmonary artery systolic pressure is 27 mmHg. Ordering Physician: Nessa Baca Referring Physician: Jose Garay Performed By: Gwen Butler, LIZBETH, RVT
--- NOTE | 2020-09-29 12:16 | TELEMED_ITS ---
[facility] has confirmed receipt of a request for visit. This document confirms receipt of the order initiating the consult. To find the results of the consultation, please view the patient's reports for the scanned Telemed Consult.
--- NOTE | 2020-09-29 14:08 | PN_ITS ---
<Juanjose Daviesssica BEVERAGE INSPECTION MACHINE TENDER - Last Filed: 09/29/20 14:18> Patient Problems: Active and Suspected Problems (Last Reviewed 09/22/20 @ 10:59 by Jaquelin mayer) Amnesia (Acute) Subjective: Patient seen and examined. Denies further memory loss, confusion. Denies neurologic symptoms or focal deficits. Awaiting neurology consult, EEG. - Physical Exam Vitals/I&O's: Vital Signs Temp Pulse Resp BP Pulse Ox 98.7 F 96 20 H 123/77 H 96 09/29/20 10:58 09/29/20 10:58 09/29/20 10:58 09/29/20 10:58 09/29/20 10:58 Oxygen Flow Rate (L/min) 2 Oxygen Delivery Method Room Air Weight: 122 lb 12.8 oz Body Mass Index (BMI) 22.1 Finger Stick Blood Glucose 107 Intake and Output for Last 24 Hours 09/27/20 09/28/20 09/29/20 23:59 23:59 23:59 Intake Total 240 / 360 900 / 900 Balance 240 / 360 900 / 900 General: Alert, Oriented x3, Cooperative HEENT: Atraumatic, PERRLA, EOMI, Normocephalic Neck: Supple, No JVD, Negative Carotid Bruits Lungs: Clear to auscultation, Normal air movement Cardiovascular: Regular rate, No murmurs Abdomen: Bowel Sounds Present, Soft, Non Tender, Non-Distended Extremities: No clubbing, No cyanosis, No edema, Capillary Refill Less than 3 Seconds Skin: No rashes, No breakdown Musculoskeletal: No Tenderness to Palpation of Joints or Extremities Neurological: Cranial nerves II-XII grossly intact, Neuro grossly intact Psych/Mental Status: Normal Affect, Appropriate Laboratory Results 09/28/20 16:09: Troponin I < 0.015 09/28/20 18:26: Troponin I < 0.015 09/29/20 05:27: WBC 5.3, RBC 4.28, Hgb 12.2, Hct 37.6, MCV 87.9, MCH 28.5, MCHC 32.4, RDW Std Deviation 44.3 H, RDW Coeff of Vilma 13.7, Plt Count 237, MPV 10.4, Immature Gran % (Auto) 0.600, Neut % (Auto) 59.9, Lymph % (Auto) 26.4, Holmes % (Auto) 10.3 H, Eos % (Auto) 2.1, Baso % (Auto) 0.7, Absolute Neuts (auto) 3.2, Absolute Lymphs (auto) 1.41, Nucleated RBC % 0 09/29/20 05:27: Sodium 141, Potassium 3.6, Chloride 108 H, Carbon Dioxide 26.0, Anion Gap 7, BUN 14, Creatinine 0.59, Estim Creat Clear Calc 38.44, Est GFR (MDRD) Af Amer 127, Est GFR (MDRD) Non-Af 105, BUN/Creatinine Ratio 23.7 H, Glucose 88, Calcium 9.4, Phosphorus 3.8, Magnesium 2.3, Total Bilirubin 0.50, AST 20, ALT 15, Alkaline Phosphatase 65, Total Protein 6.5, Albumin 3.0 L, Globulin 3.5, Albumin/Globulin Ratio 0.9, Triglycerides 97, Cholesterol 158, LDL Cholesterol 66, VLDL Cholesterol 19, HDL Cholesterol 73, TSH 2.32 09/29/20 12:20: Magnesium 1.9 Current Medications Acetaminophen (Acetaminophen 325 Mg Tablet) 650 mg PO Q6H PRN PRN PRN Reason: Pain Score 1-10/Temp > 100.7 F Al Hydroxide/Mg Hydroxide (Mag Hydrox/Al Hydrox/Simeth 30 Ml Udc) 30 ml PO Q6H PRN PRN PRN Reason: Gastric Burning Albuterol Sulfate (Albuterol 2.5 Mg/3 Ml Vial.Neb.) 2.5 mg INHALATION Q2H PRN PRN PRN Reason: SOB/Wheezing Alprazolam (Alprazolam 0.5 Mg Tablet) 0.5 mg PO BID PRN PRN PRN Reason: anxiety Last Admin: 09/28/20 21:38 Dose: 0.5 mg Documented by: Amlodipine Besylate (Amlodipine 5 Mg Tablet) 5 mg PO DAILY [facility] Last Admin: 09/29/20 11:05 Dose: 5 mg Documented by: Aspirin (Aspirin 81 Mg Tab.Chew) 81 mg PO DAILY@0800 [facility] Last Admin: 09/29/20 11:04 Dose: Not Given Documented by: Atorvastatin Calcium (Atorvastatin Calcium 40 Mg Tablet) 40 mg PO QHS [facility] Last Admin: 09/28/20 21:38 Dose: 40 mg Documented by: Enoxaparin Sodium (Enoxaparin 40 Mg/0.4 Ml Syringe) 40 mg SC DAILY [facility] Last Admin: 09/29/20 11:05 Dose: Not Given Documented by: Hydralazine HCl (Hydralazine 20 Mg/Ml Vial) 5 mg IV Q30M PRN PRN Reason: to maintain BP goals Labetalol HCl (Labetalol (Prefilled) 20 Mg/4 Ml) 10 - 20 mg IV Q10M PRN PRN PRN Reason: to Maintain BP Goals Melatonin (Melatonin 3 Mg Tablet) 3 mg PO QHS PRN PRN PRN Reason: INSOMNIA Ondansetron HCl (Ondansetron 4 Mg/2 Ml Vial) 4 mg IV Q8H PRN PRN PRN Reason: NAUSEA/VOMITING Senna/Docusate Sodium (Senna/Docusate Sodium 1 Tablet) 2 tablet PO BID PRN PRN PRN Reason: Constipation Last Admin: 09/28/20 21:38 Dose: 2 tablet Documented by: Sodium Chloride (0.9% Saline Lock 10 Ml Syringe) 10 - 40 ml IV UD PRN PRN Reason: SALINE FLUSH Last Admin: 09/29/20 08:58 Dose: 20 ml Documented by: Medical Necessity - Tobacco Use Smoking Status: Former smoker Assessment/Plan All Active Problems (Last Reviewed 09/22/20 @ 10:59 by Jaquelin Villasenor) Amnesia (Acute) Anxiety (Acute) Hyperlipemia (Acute) Uterine procidentia (Acute) Pessary maintenance (Resolved) Cystocele with incomplete uterovaginal prolapse (Ruled-out) 1. Amnesia episode, history of TGA (2014)-MRI of brain without acute infarct. Neck MRA unremarkable. Echocardiogram completed. SOC neurology consult placed. EEG pending. PT/OT/ST. Continue aspirin, statin pending neurology evaluation. 2. Hypertension-stable, continue amlodipine regimen. 3. Hyperlipidemia-continue statin. 4. Severe anxiety-patient reports recently worsened. On as needed Xanax however patient requesting daily regimen that is nonsedating. We will add BuSpar with further outpatient titration/evaluation. DVT prophylaxis-Lovenox This patient was seen by HANG Boyce under the supervision of Dr. Daigle. <Prabhakar Daigle F - Last Filed: 09/29/20 15:39> - Physical Exam Vitals/I&O's: Vital Signs Temp Pulse Resp BP Pulse Ox 98.7 F 100 20 H 123/77 H 96 09/29/20 10:58 09/29/20 14:52 09/29/20 10:58 09/29/20 10:58 09/29/20 10:58 Oxygen Flow Rate (L/min) 2 Oxygen Delivery Method Room Air Weight: 122 lb 12.76 oz Body Mass Index (BMI) 22.1 Finger Stick Blood Glucose 107 Intake and Output for Last 24 Hours 09/27/20 09/28/20 09/29/20 23:59 23:59 23:59 Intake Total 240 / 360 900 / 900 Balance 240 / 360 900 / 900 Laboratory Results 09/28/20 16:09: Troponin I < 0.015 09/28/20 18:26: Troponin I < 0.015 09/29/20 05:27: WBC 5.3, RBC 4.28, Hgb 12.2, Hct 37.6, MCV 87.9, MCH 28.5, MCHC 32.4, RDW Std Deviation 44.3 H, RDW Coeff of Vilma 13.7, Plt Count 237, MPV 10.4, Immature Gran % (Auto) 0.600, Neut % (Auto) 59.9, Lymph % (Auto) 26.4, Holmes % (Auto) 10.3 H, Eos % (Auto) 2.1, Baso % (Auto) 0.7, Absolute Neuts (auto) 3.2, Absolute Lymphs (auto) 1.41, Nucleated RBC % 0 09/29/20 05:27: Sodium 141, Potassium 3.6, Chloride 108 H, Carbon Dioxide 26.0, Anion Gap 7, BUN 14, Creatinine 0.59, Estim Creat Clear Calc 38.44, Est GFR (MDRD) Af Amer 127, Est GFR (MDRD) Non-Af 105, BUN/Creatinine Ratio 23.7 H, Glucose 88, Calcium 9.4, Phosphorus 3.8, Magnesium 2.3, Total Bilirubin 0.50, AST 20, ALT 15, Alkaline Phosphatase 65, Total Protein 6.5, Albumin 3.0 L, Globulin 3.5, Albumin/Globulin Ratio 0.9, Triglycerides 97, Cholesterol 158, LDL Cholesterol 66, VLDL Cholesterol 19, HDL Cholesterol 73, TSH 2.32 09/29/20 12:20: Magnesium 1.9 Current Medications Acetaminophen (Acetaminophen 325 Mg Tablet) 650 mg PO Q6H PRN PRN PRN Reason: Pain Score 1-10/Temp > 100.7 F Al Hydroxide/Mg Hydroxide (Mag Hydrox/Al Hydrox/Simeth 30 Ml Udc) 30 ml PO Q6H PRN PRN PRN Reason: Gastric Burning Albuterol Sulfate (Albuterol 2.5 Mg/3 Ml Vial.Neb.) 2.5 mg INHALATION Q2H PRN PRN PRN Reason: SOB/Wheezing Alprazolam (Alprazolam 0.5 Mg Tablet) 0.5 mg PO BID PRN PRN PRN Reason: anxiety Last Admin: 09/28/20 21:38 Dose: 0.5 mg Documented by: Amlodipine Besylate (Amlodipine 5 Mg Tablet) 5 mg PO DAILY [facility] Last Admin: 09/29/20 11:05 Dose: 5 mg Documented by: Aspirin (Aspirin 81 Mg Tab.Chew) 81 mg PO DAILY@0800 [facility] Last Admin: 09/29/20 11:04 Dose: Not Given Documented by: Atorvastatin Calcium (Atorvastatin Calcium 40 Mg Tablet) 40 mg PO QHS [facility] Last Admin: 09/28/20 21:38 Dose: 40 mg Documented by: Buspirone HCl (Buspirone 5 Mg Tablet) 5 mg PO BID [facility] Enoxaparin Sodium (Enoxaparin 40 Mg/0.4 Ml Syringe) 40 mg SC DAILY [facility] Last Admin: 09/29/20 11:05 Dose: Not Given Documented by: Hydralazine HCl (Hydralazine 20 Mg/Ml Vial) 5 mg IV Q30M PRN PRN Reason: to maintain BP goals Labetalol HCl (Labetalol (Prefilled) 20 Mg/4 Ml) 10 - 20 mg IV Q10M PRN PRN PRN Reason: to Maintain BP Goals Melatonin (Melatonin 3 Mg Tablet) 3 mg PO QHS PRN PRN PRN Reason: INSOMNIA Ondansetron HCl (Ondansetron 4 Mg/2 Ml Vial) 4 mg IV Q8H PRN PRN PRN Reason: NAUSEA/VOMITING Senna/Docusate Sodium (Senna/Docusate Sodium 1 Tablet) 2 tablet PO BID PRN PRN PRN Reason: Constipation Last Admin: 09/28/20 21:38 Dose: 2 tablet Documented by: Sodium Chloride (0.9% Saline Lock 10 Ml Syringe) 10 - 40 ml IV UD PRN PRN Reason: SALINE FLUSH Last Admin: 09/29/20 08:58 Dose: 20 ml Documented by: Addendum: Dr. Daigle I personally examined the patient and reviewed the chart. I agree with the above. 75-year-old female presenting from home with transient global amnesia. She is undergoing a stroke work-up currently with MRI and MRA of her head and neck which were both negative. Echo is pending as is in the EEG. She does have significant anxiety and this is likely the underlying culprit for her TGA. No focal neurological symptoms and NIH is 0. Will await completion of the EEG and plan for discharge once completed, results can be followed up as an outpatient. Because of her second significant anxiety, she is on Xanax at home, will add BuSpar as an inpatient and monitor her I would also recommend the addition of a either SSRI or SNRI as an outpatient and also discussed with her extensively the role of therapy for her anxiety. OBSV E&M: 71201 Subsequent observation care L2
--- NOTE | 2020-09-29 15:23 | CASEMGMT ---
SW did not complete a PHQ 9 with patient as per chart she did not have a Stroke or TIA. Trixie VARGAS MSW
--- NOTE | 2020-09-29 16:59 | DCINST_ITS ---
- Discharge Diagnoses Current Active Problems: Current Active and Chronic Problems (Last Reviewed 09/22/20 @ 10:59 by Jaquelin Villasenor) Amnesia (Acute) You will use the following diet at home:: No restrictions Discharge Activity: Return to Normal Activity Call your doctor if you observe: Shortness of breath, Dizziness, Fainting spells, Chest pain Allergies/Adverse Reactions: Allergies lisinopril Allergy (Verified 09/28/20 12:13) Other Medications to take at Discharge alprazolam 0.5 mg tablet 0.5 mg PO BID PRN #20 tab 09/22/20 amlodipine 5 mg tablet 5 mg PO DAILY 09/22/20 atorvastatin 40 mg tablet 40 mg PO DAILY 09/22/20 Aspirin [Aspirin, Baby] 81 mg PO DAILY@0800 #30 tab.chew 09/29/20 busPIRone [Buspar] 5 mg PO BID #60 tab 09/29/20 The following prescriptions were given: Aspirin [Aspirin, Baby] 81 mg PO DAILY@0800 #30 tab.chew Transmission Status: Pending to [facility]/pharmacy #[id number] busPIRone [Buspar] 5 mg PO BID #60 tab Transmission Status: Pending to [facility]/pharmacy #[id number] Primary Care Physician: Jose Garay III, MD [Primary Care Provider] - Please follow up with your Primary Care Physician in: 1 Week Test Results: Test results from this visit will be discussed in further detail at your follow- up appointment, if applicable. Please Follow Up With: Jose Ramon Almazan MD - Neurology When: Call for follow up Proposed Discharge Date: 09/29/20
--- NOTE | 2020-09-29 17:02 | PCM.DC.SUM ---
<Gabrielle Davies SENIOR INVESTMENT MANAGER - Last Filed: 09/29/20 17:09> Discharge Date and Diagnosis - Problem List Patient Problems: Active and Suspected Problems (Last Reviewed 09/22/20 @ 10:59 by Jaquelin Villasenor) Amnesia (Acute) Date of Admission: 09/28/20 Date of Discharge: 09/29/20 - Primary Discharge Diagnosis Acute Problems: Active Problems (Last Reviewed 09/22/20 @ 10:59 by Jaquelin Villasenor) 1. Probable transient global amnesia, history of TGA (2015) 2. Hypertension 3. Hyperlipidemia 4. Severe anxiety - Secondary Discharge Diagnosis Chronic Problems: Chronic Problems (Last Reviewed 09/22/20 @ 10:59 by Jaquelin Villasenor) HTN (hypertension) (Chronic) Hospital Course and Treatment Imaging Results: Diagnostic Data Brain CT 09/28/20 12:14 IMPRESSION: Stable chronic ischemic and atrophic changes. No acute intracranial abnormality. N.B. : The above information has been verbally conveyed by Yusef Bobo MD to Rigo Watson on 09/28/2020 12:57:08 (ET). Electronically Signed: Yusef Bobo MD at 12:58 EST Tel , Service support , ADDENDUM: 09/28/20 1305 IMPRESSION: Stable chronic ischemic and atrophic changes. No acute intracranial abnormality. N.B. : The above information has been verbally conveyed by Yusef Bobo MD to Rigo Watson on 09/28/2020 12:57:08 (ET). Electronically Signed: Yusef Bobo MD at 12:58 EST Tel , Service support , Chest X-Ray 09/28/20 12:30 IMPRESSION: No acute thoracic pathology. Electronically Signed: Yusef Bobo MD at 12:51 EST Tel , Service support , Head MRA 09/29/20 05:55 IMPRESSION: 1. Negative MRA of the brain. 2. 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 at 1128 Reported and signed by: Rigo Lopez MD Electronically Signed: Rigo Lopez MD at 11:27 EST Tel , Service support , Neck MRA 09/29/20 05:55 IMPRESSION: 1. Unremarkable MRA of the neck. at 1216 Reported and signed by: Rigo Lopez MD Electronically Signed: Rigo Lopez MD at 12:15 EST Tel , Service support , Brain MRI 09/29/20 09:00 IMPRESSION: 1. No acute infarct or acute intracranial disease. 2. Minimal chronic small vessel ischemic white matter changes, stable. 3. Otherwise, unremarkable noncontrast MR examination of brain. at 1119 Reported and signed by: Rigo Lopez MD Electronically Signed: Rigo Lopez MD at 11:18 EST Tel , Service support , SOC neurology Operations: None Procedures: 2-D Echocardiogram, Electroencephalogram Summary of Care Provided: The patient is a 75 year old F admitted 09/28/2020 following episode of amnesia. 1. Amnesia episode, history of TGA (2014)-MRI of brain without acute infarct. Neck MRA unremarkable. Echocardiogram demonstrates an EF of 60%, stage I diastolic dysfunction. SOC neurology consulted who suspects probable transient global amnesia. EEG completed, report pending however per neurology can be followed as outpatient. Continue aspirin 81 mg daily. Outpatient follow-up with neurology. 2. Hypertension-stable, continue amlodipine regimen. 3. Hyperlipidemia-continue statin. 4. Severe anxiety-patient reports recently worsened. On as needed Xanax however patient requesting daily regimen that is nonsedating. Initiated on BuSpar 5 mg twice daily with further outpatient titration/evaluation. General: Alert, Oriented x3, Cooperative HEENT: Atraumatic, PERRLA, EOMI, Normocephalic Neck: Supple, No JVD, Negative Carotid Bruits Lungs: Clear to auscultation, Normal air movement Cardiovascular: Regular rate, No murmurs Abdomen: Bowel Sounds Present, Soft, Non Tender, Non-Distended Extremities: No clubbing, No cyanosis, No edema, Capillary Refill Less than 3 Seconds Skin: No rashes, No breakdown Musculoskeletal: No Tenderness to Palpation of Joints or Extremities Neurological: Cranial nerves II-XII grossly intact, Neuro grossly intact Psych/Mental Status: Normal Affect, Appropriate Patient seen and examined prior to discharge. Physical assessment as noted above. Patient is stable for discharge with follow up recommendations as noted above. This patient was seen by HANG Boyce under the supervision of Dr. Daigle. Patient Problems: Active and Suspected Problems (Last Reviewed 09/22/20 @ 10:59 by Jaquelin Villasenor) Amnesia (Acute) - Physical Exam Vitals/I&O's: Vital Signs Temp Pulse Resp BP Pulse Ox 98.7 F 100 20 H 123/77 H 96 09/29/20 10:58 09/29/20 14:52 09/29/20 10:58 09/29/20 10:58 09/29/20 10:58 Oxygen Flow Rate (L/min) 2 Oxygen Delivery Method Room Air Weight: 122 lb 12.76 oz Body Mass Index (BMI) 22.1 Finger Stick Blood Glucose 107 Intake and Output for Last 24 Hours 09/27/20 09/28/20 09/29/20 23:59 23:59 23:59 Intake Total 240 / 360 900 / 900 Balance 240 / 360 900 / 900 Laboratory Results 09/28/20 18:26: Troponin I < 0.015 09/29/20 05:27: WBC 5.3, RBC 4.28, Hgb 12.2, Hct 37.6, MCV 87.9, MCH 28.5, MCHC 32.4, RDW Std Deviation 44.3 H, RDW Coeff of Vilma 13.7, Plt Count 237, MPV 10.4, Immature Gran % (Auto) 0.600, Neut % (Auto) 59.9, Lymph % (Auto) 26.4, Zavala % (Auto) 10.3 H, Eos % (Auto) 2.1, Baso % (Auto) 0.7, Absolute Neuts (auto) 3.2, Absolute Lymphs (auto) 1.41, Nucleated RBC % 0 09/29/20 05:27: Sodium 141, Potassium 3.6, Chloride 108 H, Carbon Dioxide 26.0, Anion Gap 7, BUN 14, Creatinine 0.59, Estim Creat Clear Calc 38.44, Est GFR (MDRD) Af Amer 127, Est GFR (MDRD) Non-Af 105, BUN/Creatinine Ratio 23.7 H, Glucose 88, Calcium 9.4, Phosphorus 3.8, Magnesium 2.3, Total Bilirubin 0.50, AST 20, ALT 15, Alkaline Phosphatase 65, Total Protein 6.5, Albumin 3.0 L, Globulin 3.5, Albumin/Globulin Ratio 0.9, Triglycerides 97, Cholesterol 158, LDL Cholesterol 66, VLDL Cholesterol 19, HDL Cholesterol 73, TSH 2.32 09/29/20 12:20: Magnesium 1.9 Current Medications Acetaminophen (Acetaminophen 325 Mg Tablet) 650 mg PO Q6H PRN PRN PRN Reason: Pain Score 1-10/Temp > 100.7 F Al Hydroxide/Mg Hydroxide (Mag Hydrox/Al Hydrox/Simeth 30 Ml Udc) 30 ml PO Q6H PRN PRN PRN Reason: Gastric Burning Albuterol Sulfate (Albuterol 2.5 Mg/3 Ml Vial.Neb.) 2.5 mg INHALATION Q2H PRN PRN PRN Reason: SOB/Wheezing Alprazolam (Alprazolam 0.5 Mg Tablet) 0.5 mg PO BID PRN PRN PRN Reason: anxiety Last Admin: 09/28/20 21:38 Dose: 0.5 mg Documented by: Amlodipine Besylate (Amlodipine 5 Mg Tablet) 5 mg PO DAILY [facility] Last Admin: 09/29/20 11:05 Dose: 5 mg Documented by: Aspirin (Aspirin 81 Mg Tab.Chew) 81 mg PO DAILY@0800 [facility] Last Admin: 09/29/20 11:04 Dose: Not Given Documented by: Atorvastatin Calcium (Atorvastatin Calcium 40 Mg Tablet) 40 mg PO QHS [facility] Last Admin: 09/28/20 21:38 Dose: 40 mg Documented by: Buspirone HCl (Buspirone 5 Mg Tablet) 5 mg PO BID [facility] Enoxaparin Sodium (Enoxaparin 40 Mg/0.4 Ml Syringe) 40 mg SC DAILY [facility] Last Admin: 09/29/20 11:05 Dose: Not Given Documented by: Hydralazine HCl (Hydralazine 20 Mg/Ml Vial) 5 mg IV Q30M PRN PRN Reason: to maintain BP goals Labetalol HCl (Labetalol (Prefilled) 20 Mg/4 Ml) 10 - 20 mg IV Q10M PRN PRN PRN Reason: to Maintain BP Goals Melatonin (Melatonin 3 Mg Tablet) 3 mg PO QHS PRN PRN PRN Reason: INSOMNIA Ondansetron HCl (Ondansetron 4 Mg/2 Ml Vial) 4 mg IV Q8H PRN PRN PRN Reason: NAUSEA/VOMITING Senna/Docusate Sodium (Senna/Docusate Sodium 1 Tablet) 2 tablet PO BID PRN PRN PRN Reason: Constipation Last Admin: 09/28/20 21:38 Dose: 2 tablet Documented by: Sodium Chloride (0.9% Saline Lock 10 Ml Syringe) 10 - 40 ml IV UD PRN PRN Reason: SALINE FLUSH Last Admin: 09/29/20 08:58 Dose: 20 ml Documented by: Discharge Diet: No Restrictions Discharge Activity: Return to Normal Activity Call your doctor if you observe: Shortness of breath, Dizziness, Fainting spells, Chest pain Home Medications: Medications to take at Discharge alprazolam 0.5 mg tablet 0.5 mg PO BID PRN #20 tab 09/22/20 amlodipine 5 mg tablet 5 mg PO DAILY 09/22/20 atorvastatin 40 mg tablet 40 mg PO DAILY 09/22/20 Aspirin [Aspirin, Baby] 81 mg PO DAILY@0800 #30 tab.chew 09/29/20 busPIRone [Buspar] 5 mg PO BID #60 tab 09/29/20 Following Prescriptions Were Given to Patient: Aspirin [Aspirin, Baby] 81 mg PO DAILY@0800 #30 tab.chew Transmission Status: Received by [facility]/pharmacy #[id number] busPIRone [Buspar] 5 mg PO BID #60 tab Transmission Status: Received by [facility]/pharmacy #[id number] Primary Care Physician: Jose Garay III, MD [Primary Care Provider] - Please follow up with your Primary Care Physician in: 1 Week Please Follow Up With: Jose Ramon Almazan MD - Neurology When: Call for follow up Disposition: Home Minutes spent on discharge:: 35 Patient Condition:: Stable Medical Necessity - Tobacco Use Smoking Status: Former smoker Meaningful Use Info Meaningful Use Diagnoses (Choose all that apply): None applicable <Prabhakar Daigle Venita - Last Filed: 09/30/20 07:12> Discharge Date and Diagnosis - Primary Discharge Diagnosis Acute Problems: Active Problems (Last Reviewed 09/22/20 @ 10:59 by Jaquelin Villasenor) Amnesia (Acute) - Secondary Discharge Diagnosis Chronic Problems: Chronic Problems (Last Reviewed 09/22/20 @ 10:59 by Jaquelin Villasenor) HTN (hypertension) (Chronic) Hospital Course and Treatment Summary of Care Provided: The patient is a 75 year old F [] - Physical Exam Vitals/I&O's: Vital Signs Temp Pulse Resp BP Pulse Ox 98.4 F 86 18 120/75 100 09/29/20 17:15 09/29/20 17:15 09/29/20 17:15 09/29/20 17:15 09/29/20 17:15 Oxygen Flow Rate (L/min) 2 Oxygen Delivery Method Room Air Weight: 122 lb 12.76 oz Body Mass Index (BMI) 22.1 Finger Stick Blood Glucose 107 Intake and Output for Last 24 Hours 09/28/20 09/29/20 09/30/20 23:59 23:59 23:59 Intake Total 240 / 360 900 / 900 Balance 240 / 360 900 / 900 Addendum: Dr. Daigle I personally examined the patient and reviewed the chart. I agree with the above. 75-year-old female presenting from home with transient global amnesia. She is undergoing a stroke work-up currently with MRI and MRA of her head and neck which were both negative. Echo is pending as is in the EEG. She does have significant anxiety and this is likely the underlying culprit for her TGA. No focal neurological symptoms and NIH is 0. Will await completion of the EEG and plan for discharge once completed, results can be followed up as an outpatient. Because of her second significant anxiety, she is on Xanax at home, will add BuSpar as an inpatient and monitor her I would also recommend the addition of a either SSRI or SNRI as an outpatient and also discussed with her extensively the role of therapy for her anxiety. Discussed the plan for discharge today and she expressed understanding of the risk benefits of going home and would like to go home today since all of her imaging studies were normal. OBSV E&M: 19481 Observation care discharge
[2020-09-30 08:03] LABS: Bedside Glucose 106 mg/dL (70-110)
== END 2020-09-29 18:19 | disposition home or self-care (01) | DRG 72 ==
LOC: ED 12:59 → PCU 14:24
PROVIDERS: Family Medicine; Admitting Provider Internal Medicine; Emergency Provider Emergency Medicine; PCP Family Medicine; Visit Provider Family Medicine
DX: G45.4 Transient global amnesia (principal); E87.6 Hypokalemia; I10 Essential (primary) hypertension; E78.5 Hyperlipidemia, unspecified; F41.9 Anxiety disorder, unspecified; Z79.82 Long term (current) use of aspirin; Z79.899 Other long term (current) drug therapy; Z87.891 Personal history of nicotine dependence
CPT/HCPCS: 36415; 70450; 70544; 70549; 70551; 71045; 80048; 80053; 80061; 81001; 82962; 83735; 84100; 84443; 84484; 85025; 85610; 85730; 93005; 93306; 94762; 95819; 97802; 99284; A9575; A4216

== ENCOUNTER 2020-10-14 05:26 | Day surgery (SDC) | payer MEDICARE, BC, SELFPAY ==
[2020-09-22 10:57] VITALS: BMI 23.2
[2020-09-30 09:45] VITALS: BMI 22.1
--- NOTE | 2020-10-13 20:33 | HP.PCM_ITS ---
- Problem List (1) Anxiety Status: Acute (2) Hyperlipemia Status: Acute (3) Uterine procidentia Status: Acute Comment: failed #4 donut pessary. Plan LAVH BSO due to history of 3 cesareans that will be combo case with Yane (4) HTN (hypertension) Status: Chronic History and Physical Date of Admission: 10/14/20 Intake Vital Signs 09/22/20 Height 5 ft 2.5 in 09/22/20 Weight: 129 lb 09/22/20 BP 164/104 H Intake Visit Reasons: yane ritter Chief Complaint: surgical consult, yane ritter [employer] Required: No Is patient in pain?: No Allergies lisinopril Allergy (Verified 09/22/20 10:58) Other Medications alprazolam 0.5 mg tablet 0.5 mg PO BID PRN #20 tab 09/22/20 [Rx Confirmed 09/22/20] amlodipine 5 mg tablet 5 mg PO DAILY 09/22/20 [History Confirmed 09/22/20] atorvastatin 40 mg tablet 40 mg PO DAILY 09/22/20 [History Confirmed 09/22/20] Is last menstrual period known: No Post menopausal: Yes Patient : No : No [facility] History History of delivery (Acute) History of hernia repair (Acute) Family History Mother Heart disease Lung cancer Father Bladder cancer Social History (Updated 09/24/20 @ 07:[address] Fatimah Farley MD) household members: spouse number of children: 3 current occupational status: retired history of recent travel: No sexually active: No Smoking Status: Former smoker alcohol intake: never substance use type: does not use what type of physical activity do you participate in: none seatbelt use: always do you feel safe at home: Yes additional social history: - johann fuchs combo: Details: LASHAY LIRA is a 75 year old who presents for further management of pelvic organ prolapse. Patient has had increasing symptoms over the last months in the years of vaginal bulge and pressure. She was initially fitted with 2 different size and style pessaries that were unable to be maintained and therefore she was referred to urogynecology for evaluation. It was recommended that she have a hysterectomy and pelvic floor repair by the urogynecologist. She denies any vaginal bleeding or abnormal discharge admits significant discomfort in the pelvic area. She also has concerns that she may have had Covid over a month ago however her testing was negative. She denies any active respiratory symptoms at this time. Female Reproductive History Menopausal Symptoms: No night sweats Pregancy History 6 Elective abortions Hx Para 3 Spontaneous abortions Hx # Term Pregnancies Ectopic pregnancies Hx # Pregnancies Multiple births # of living children 2 ROS Const Constitutional: Denies fatigue, night sweats, weight gain or weight loss ENT ENT: Reports system reviewed and no additional complaints, except as docu Cardio Card: Denies chest pain Resp Resp: Denies cough or dyspnea GI GI: Reports as per HPI and constipation; denies nausea or vomiting : Reports as per HPI, prolapse symptoms and vaginal dryness; denies nipple discharge, vaginal discharge, vaginal odor or vaginal itching Musc Musc: Denies joint pain, back pain or muscle weakness Skin Skin/Breast: Denies hair loss, change in hair, dry skin, breast lump, breast pain, breast skin changes or nipple discharge Neuro Neuro: Reports system reviewed and no additional complaints, except as docu Psych Psych: Reports system reviewed and no additional complaints, except as docu and anxiety Endo Endo: Denies cold intolerance, excessive sweating, heat intolerance or increased thirst Marcelo/Lymph Hematologic/Lymphatic: Denies easy bleeding, Denies easy bruising, Reports enlarged lymph nodes (questionable on right side per patient, not enlarged on exam) Exam Const General: cooperative, healthy appearing, comfortable, no acute distress, well developed Orientation: alert [facility] Head: normal to inspection, normocephalic Ears: hearing grossly normal bilaterally, external ears normal Nose: external nose normal, nares normal Face and sinus: normal facial exam Neck Neck: normal visual inspection, no lymphadenopathy Thyroid: thyroid normal Chest Chest palpation & inspection: normal inspection of the chest Resp Effort & Inspection: normal respiratory effort Auscultation: clear to auscultation bilaterally Cardio Rate: regular rate Rhythm: regular rhythm Heart Sounds: S1 normal, S2 normal GI Inspection: normal to inspection, non-distended Palpation: soft, no hepatosplenomegaly General: bladder normal to palpation External Female Exam: normal external appearance (atrophy), normal appearance of the urethra Urethra: normal appearance of the urethra, normal palpation, no discharge Speculum Exam - Vagina: normal appearance of the vagina (atrophy), normal vaginal discharge Speculum Exam - Cervix: normal appearance of the cervix Bimanual Exam- Vagina & Uterus: normal bimanual exam, uterine size normal, bladder normal to palpation, uterine shape normal, uterine mobility normal, uterine consistency normal, normal cervical palpation, uterus displaced (complete procidentia) Bimanual Exam- Adnexa, other: normal adnexae, adnexae mobile, no adnexal masses, rectocele, cystocele (grade IV), vaginal apex descent Pelvic Support: cystocele (grade IV) severe, rectocele severe (grade IV), vaginal apex descent severe (grade IV) Musc Other: gross motor intact no deficits, full bilateral strength Skin General: no rashes or lesions noted Neuro General: alert, awake, moves all extremities, no focal motor deficits Motor: muscle tone normal throughout Extrem General: normal to inspection, no pedal edema Psych Appearance: grossly normal Mental Status: mental status grossly normal Affect: normal affect Speech and Movement: speech and movement normal Assessment & Plan Problems 1. HTN (hypertension) I10 2. Uterine procidentia N81.3 failed #4 donut pessary. Plan LAVH BSO due to history of 3 cesareans that will be combo case with Yane Pires After discussing the patient's diagnosis and treatment plan options, patient wishes to proceed with surgical management. I have discussed with the patient the risks, benefits, and alternatives of the procedure which include but are not limited to risks of anesthesia, bleeding, infection, possible damage to bowel, bladder, or surrounding vasculature which could lead to additional surgery to evaluate any complications. Patient agrees to procedure and wishes to proceed. ACOG/uptodate references given for additional information regarding procedure. Medications New: alprazolam (Xanax) 0.5 mg PO BID PRN 20 tabs 0RF anxiety F41.9 Coding Level of Care Code Off vis,est,level 5 Diagnoses HTN (hypertension) I10 Uterine procidentia N81.3 UPDATE- I have seen the patient and performed any clinically relevant updates to the history and physical exam. Fatimah Farley MD
[2020-10-14] VITALS (13 sets, daily range): BP systolic 119–132; BP diastolic 73–84; PULSE 76–108; RESP 14–18; TEMP 35.8–37.2; O2SAT 94–100; BMI 23.8; BMI 23.6
[2020-10-14] MEDS: Celecoxib 200 MG Capsule 400 MG PO (06:26)
[2020-10-14] MEDS: Acetaminophen 500 MG Tablet 1000 MG PO ×3 (06:26→20:36)
[2020-10-14] MEDS: Scopolamine 1mg/72hr Patch 1 PATCH TD (06:27)
[2020-10-14] MEDS: Gabapentin 600 MG Tablet PO (06:27)
[2020-10-14] MEDS: dexAMETHasone 10 MG/ML Vial 8 MG IV (06:28)
[2020-10-14] MEDS: Enoxaparin 40 MG/0.4 ML Syringe SC (06:28)
[2020-10-14] MEDS: Lactated Ringers 1,000 ML 40 ML IV ×2 (06:28→08:30)
[2020-10-14] MEDS: Lactated Ringers 1,000 ML 70 ML IV ×2 (07:00→22:34)
[2020-10-14] MEDS: Cefazolin 2 GM in 0.9% Normal Saline 100 ML IV (07:21)
--- NOTE | 2020-10-14 07:30 | HYST_PTH ---
PATIENT: LASHAY LIRA LOC: [facility] [place][id number] AGE/SX: 75/F ROOM: RE10/14/[address]: Dr. Fatimah Farley MD : 1945 BED: DIS: 10/15/2020 SPEC #: [id number] RECD: 10/14/20 11:26 STATUS: JEREMY REMadalyn #: [id number] ANYI: 10/14/20 07:[address]: Fatimah Farley DEPT: SURGICAL PATHOLOGY RECD BY: Nakul Duarte ENTERED: 10/14/20 12:01 SP TYPE: HYSTERECT OTHR DR: MD Dr. Tameka Diego III, MD Tissues: Uterus, NOS Procedures: Surgery Specimen Level V HEADER OPERATION: ERAS, hysterectomy, LAVH, salpingo-oophorectomy PRE-OP DIAGNOSIS: Uterine procidentia TISSUE SUBMITTED: Uterus, bilateral fallopian tubes and ovaries MICROSCOPIC DIAGNOSIS Uterus, hysterectomy: Cervix - hyperkeratosis and mild chronic inflammation. Endometrium - endometrial polyp with simple cystic hyperplasia without atypia. [place] endometrium with inactive to cystic change. Myometrium - adenomyosis. Right ovary - corpora albicantia and benign epithelial inclusion cysts. Right fallopian tube - no pathologic change. Left ovary - corpora albicantia. Left fallopian tube - benign paratubal cyst. AM:bony 10/15/2020 MICROSCOPIC DESCRIPTION Slides are reviewed. GROSS DESCRIPTION Received in fixative is one container labeled with the patient's name and designated uterus. The specimen consists of a uterus with attached cervix and attached portions of right and left fallopian tubes and attached right and left ovaries. The uterus with cervix measures 11.8 x 5.5 x 3 cm and weighs 52 gm. The ectocervix is grossly unremarkable. The endocervical canal measures 5.6 cm in length and is grossly unremarkable. The triangular endometrial cavity measures 4 x 3.5 cm. The posterior endometrial surface contains a light yang polyp measuring 1 cm in greatest dimension. The right and left fallopian tube segments are similar in appearance measuring 4 cm in length and 0.6 cm in average diameter. No tubo-ovarian adhesions are seen. Normal fimbriated ends are visible. The right and left ovaries are similar in appearance and are light yang-yellow in color measuring in average 3 x 1.7 x 1.2 cm. Serial sections of the ovaries does not reveal mass lesions. Road Passenger Firer sections are submitted in seven cassettes as follows: 1 - anterior cervix, 2 - posterior cervix, 3 - anterior uterine wall, 4 & 5 - posterior uterine wall with endometrial polyp, 6 - right fallopian tube and ovary, 7 - left fallopian tube and ovary. / AM:bony 10/14/20 TC:5 CPT: 06662
--- NOTE | 2020-10-14 07:33 | PCM.OPRPT ---
Problem List (1) Anxiety Status: Acute (2) Hyperlipemia Status: Acute (3) Uterine procidentia Status: Acute Comment: failed #4 donut pessary. Plan LAVH BSO due to history of 3 cesareans that will be combo case with Yane (4) HTN (hypertension) Status: Chronic Report of Operation Date of Procedure: 10/14/20 Pre-Operative Diagnosis: uterine procidentia Post-Operative Diagnosis: same Surgery/Procedure Performed:: lavh bso aircraft engine technician: sun bernstein aircraft engine technician: Zuri Pompa Type of Anesthesia:: General Specimen's removed: uterus tubes ovaries Drains: nix Fluids Replaced: crystalloid Description of Procedure: Patient received preoperative antibiotics and SCDs were on preoperatively. Patient was taken back to the operating room and placed in the dorsal lithotomy position. General anesthesia was induced and patient was prepped and draped in normal sterile fashion. Uterine manipulator was placed inside the uterus and Nix catheter placed in the bladder. The umbilicus was grasped with towel clamps and an intraumbilical incision was made after injecting with quarter percent Marcaine and a Veress needle entered into the abdomen confirmed to be intra-abdominal with a low opening pressure. Abdomen was insufflated with CO2 gas and the Veress needle removed and the 5 mm trocar was placed under direct visualization without complication. Right and left lower quadrants were transilluminated and injected with quarter percent Marcaine and 5 mm ports placed under direct visualization. Pelvis was well visualized see operative findings for additional information. Bilateral fallopian tubes and ovaries were identified and transected with the LigaSure device across the IP ligament to remove bilateral tubes and ovaries. The broad ligament was opened up by transecting the round ligament bilaterally and skeletonizing the uterine vessels bilaterally and creating a bladder flap using the LigaSure device. The uterine arteries were transected bilaterally with good visualization of the bladder and the ureters were seen to be inferior lateral to the operative area. Attention was then paid to the vaginal portion of the procedure and the cervix was grasped with Agapito clamps and circumferentially injected with dilute vasopressin. A circumferential incision was made and the vaginal mucosa was mobilized off posteriorly and the cul-de-sac entered into sharply and a longneck speculum placed. The anterior cul-de-sac was then identified and entered into sharply. The uterosacral ligaments were clamped cut and suture ligated with 0 Monocryl bilaterally followed by the cardinal ligaments which were clamped cut and suture ligated bilaterally with 0 Monocryl. The uterus serially descended and was removed without difficulty. Pelvic sidewall pedicles were checked and noted to have excellent hemostasis. The vaginal mucosa was reapproximated incorporating the posterior peritoneum. This was reapproximated using 0 Vicryl [id number] sutures. Excellent hemostasis was noted. attention was then paid to the abdominal portion again. The pelvis and cul-de-sac was well visualized and no significant active bleeding noted but some raw areas were seen on the peritoneum and therefore Anne was applied. Pressure was taken down and the areas visualized and noted of excellent hemostasis. All ports were removed under direct visualization without complication and the abdomen was desufflated of air. The instruments removed from the abdomen and the vagina vaginal sweep was negative. Port sites on the abdomen were closed with 4-0 Monocryl interrupted sutures and Steri's and windows were applied. She was awoken and taken recovery in stable condition. Grafts/Implants Used: see urogyn note - Complications none - Admit VTE Documentation VTE Present on Admission: No VTE Mechan Device Prophylaxis: SCD's Multi Select Codes - Urinary/Genital Urinary/Genital CPT Codes: 87323 LAVH+BS/O <250gr Uterus
--- NOTE | 2020-10-14 07:43 | PCM.DC.VHY ---
Discharge Diet: No Restrictions Discharge Activity: Return to Normal Activity, May Not Drive, May Shower May resume sexual activity in: 6-8 weeks Call your doctor if your incision/area has: Continuous Slow Oozing, Sudden Increased Bleeding, Increased Pain/ Swelling, Increased Redness, Foul Smelling Discharge Call your doctor if you observe: Fever of 101 or Higher, Inability to urinate, Inability to have a bowel movement, Using more than one pad per hour Allergies/Adverse Reactions: Allergies lisinopril Allergy (Verified 10/14/20 05:39) Other Medications to take at Discharge amlodipine 5 mg tablet 10 mg PO DAILY 09/22/20 atorvastatin 40 mg tablet 40 mg PO DAILY 09/22/20 Docusate Sodium [Colace] 100 mg PO DAILY 10/07/20 Melatonin 10 mg PO QHS 10/07/20 Potassium Chloride 10 meq PO DAILY 10/07/20 busPIRone [Buspar] 5 mg PO .BID-TID 10/07/20 Naproxen [Naprosyn] 250 - 500 mg PO Q8H PRN PRN #30 tab 10/14/20 Oxycodone HCl/Acetaminophen [Percocet 5-325] 1 - 2 tab PO Q6H PRN PRN 7 Days #15 tab 10/14/20 The following prescriptions were given: Naproxen [Naprosyn] 250 - 500 mg PO Q8H PRN PRN #30 tab PRN Reason: MILD PAIN Transmission Status: Pending to [facility] Oxycodone HCl/Acetaminophen [Percocet 5-325] 1 - 2 tab PO Q6H PRN PRN 7 Days #15 tab PRN Reason: Pain Transmission Status: Sent to [facility] Orders to be completed after discharge: Type & Screen - PAT ONLY Time Frame: 10/14/20, Facility: [facility], Location: Laboratory Primary Care Physician: Jose Garay III, MD [Primary Care Provider] - Test Results: Test results from this visit will be discussed in further detail at your follow-up appointment, if applicable. Please Follow Up With: Fatimah Farley MD - [phone]
[2020-10-14] MEDS: Bupivacaine 0.25% 30 ML Vial (07:51)
[2020-10-14] MEDS: Vasopressin 20 UNITS/ML Vial (07:51)
--- NOTE | 2020-10-14 08:12 | PCM.OPRPT ---
Problem List (1) Cystocele and rectocele with complete uterovaginal prolapse Status: Acute (2) Stress incontinence Status: Acute (3) Uterine procidentia Status: Acute Comment: failed #4 donut pessary. Plan LAVH BSO due to history of 3 cesareans that will be combo case with Yane Report of Operation Date of Procedure: 10/14/20 Pre-Operative Diagnosis: Complete uterine prolapse with cystocele, rectocele and stress incontinence Post-Operative Diagnosis: Same Surgery/Procedure Performed:: Anterior with Dermis, bilateral sacrospinous ligament fixation, posterior repair, cystoscopy with right ureteral catheterization Type of Anesthesia:: General Estimated Blood Loss (mL): 25cc Description of Procedure: Patient is a 75-year-old female with significant uterovaginal prolapse who presents for surgical intervention. She underwent an appropriate evaluation with cystoscopy and urodynamics in the office. She has been using vaginal estrogen cream. Informed consent was obtained including the discussion of the risks, benefits and alternatives to the procedure including COVID-19. The patient and her daughter were present for the discussion and she now presents for intervention. The patient was taken to the operating room and placed on the operating room table. Anesthesia monitored the head, neck, airway, IV access and vital signs throughout the case. Once anesthesia was appropriately ministered, the patient was placed into dorsal lithotomy position and was prepped and draped in usual sterile fashion. Dr. Farley performed a laparoscopic assisted vaginal hysterectomy, bilateral salpingo-oophorectomy. After closure of the cuff, the case was turned to il. The anterior vaginal wall was isolated and injected submucosally for hydrostatic dissection and hemostatic control. A vertical midline incision 2 cm in length was made. Sharp and blunt dissection was performed on either side of the incision until the vaginal apex was reached, the bladder neck, and bilateral ischial spines were palpable. The sacrospinous ligaments were identified and freed from surrounding tissues. Care was taken to avoid injury to the ureters. At this time, the Capio device was used to pass an Ethibond suture through each sacrospinous ligament through the dermis and then through the vaginal apex. The dermis was also secured in the midline with a 2-0 Vicryl suture at the apex, bladder neck and then laterally as close to the white line as possible. At this time the mucosal incision was closed with running interlocking 2-0 Vicryl. The mucosa was very thin and tore in multiple areas requiring oversewing. Once this was done, the Ethibond sutures were tied into position and the prolapse was reduced. At this time attention was turned toward the rectocele. Once again the submucosa was injected for hydrostatic dissection and hemostatic control. A midline incision was made and sharp and blunt dissection was performed on either side. The rectovaginal fascia was identified. It was brought together from the sides using 2-0 Vicryl. A perineal body was constructed by bringing the fascia together with interrupted Vicryl as well. The mucosa was closed using running interlocking 2-0 Vicryl. At this time, the patient's mucosa being so thin, and there being minimal redundant mucosa over the urethra, the decision was made to abort the sling portion of the procedure. The Anderson catheter was removed and a cystourethroscopy was performed through the urethra under direct visualization. There were no injuries to the urinary bladder identified. Bilateral ureteral orifices were located in the area of the trigone. The patient's right ureteral orifice was intubated with a 5 Egyptian whistle-tip catheter which was easily inserted to 20 cm. There was no evidence of injury to or obstruction of the ureter. On the patient's left side a good ureteral jet was observed. At this time the cystoscope was removed and the Anderson catheter was replaced. The vagina was packed with Premarin cream and vaginal packing. The patient was awakened and taken to the recovery room in good condition. There were no complications during this procedure. Grafts/Implants Used: Dermis - Complications None - Admit VTE Documentation VTE Present on Admission: Yes VTE Mechan Device Prophylaxis: SCD's VTE Pharm Prophylaxis ordered?: Yes
--- NOTE | 2020-10-14 08:14 | DCINST_ITS ---
Discharge Diet: No Restrictions Discharge Activity: May Not Drive, May Shower May resume sexual activity in: 8 weeks Additional Activity Instructions:: No exercise, no strenuous activity, no lifting over 5 pounds, no sexual activity, no tub bathing, no hot tubs, no swimming. Okay to shower and use stairs as needed. No driving for 2 weeks. Call your doctor if your incision/area has: Continuous Slow Oozing, Sudden Increased Bleeding, Increased Pain/ Swelling, Increased Redness, Foul Smelling Discharge Call your doctor if you observe: Fever of 101 or Higher, Inability to urinate, Inability to have a bowel movement, Using more than one pad per hour, Calf discomfort, Uncontrolled pain, - - remove nix catheter Tuesday night before bed Allergies/Adverse Reactions: Allergies lisinopril Allergy (Verified 10/14/20 14:26) cough Medications to take at Discharge amlodipine 5 mg tablet 10 mg PO DAILY 09/22/20 atorvastatin 40 mg tablet 40 mg PO DAILY 09/22/20 Docusate Sodium [Colace] 100 mg PO DAILY 10/07/20 Melatonin 10 mg PO QHS 10/07/20 Potassium Chloride 10 meq PO DAILY 10/07/20 busPIRone [Buspar] 5 mg PO .BID-TID 10/07/20 Naproxen [Naprosyn] 250 - 500 mg PO Q8H PRN PRN #30 tab 10/14/20 Oxycodone HCl/Acetaminophen [Percocet 5-325] 1 - 2 tab PO Q6H PRN PRN 7 Days #15 tab 10/14/20 The following prescriptions were given: Naproxen [Naprosyn] 250 - 500 mg PO Q8H PRN PRN #30 tab PRN Reason: MILD PAIN Transmission Status: Received by [facility] Oxycodone HCl/Acetaminophen [Percocet 5-325] 1 - 2 tab PO Q6H PRN PRN 7 Days #15 tab PRN Reason: Pain Transmission Status: Received by [facility] Orders to be completed after discharge: Type & Screen - PAT ONLY Time Frame: 10/14/20, Facility: [facility], Location: [facility] Primary Care Physician: Jose Garay III, MD [Primary Care Provider] - Test Results: Test results from this visit will be discussed in further detail at your follow- up appointment, if applicable. Please Follow Up With: Tameka Che MD When: call office for appt for Tuesday Proposed Discharge Date: 10/15/20
[2020-10-14 08:45] LABS: Bedside Glucose 86 mg/dL (70-110)
[2020-10-14] MEDS: Ondansetron 4 MG/2 ML Vial IV (10:26)
[2020-10-14] MEDS: Estrogens,Conj. 1 Tube 1 DOSE (10:27)
[2020-10-14] MEDS: Ketorolac 15 MG/ML Vial IV ×2 (13:45→18:19)
[2020-10-14] MEDS: Docusate Sodium 100 MG Capsule PO ×2 (14:37→22:34)
[2020-10-14] MEDS: busPIRone 5 MG Tablet PO ×2 (14:37→22:33)
[2020-10-14] MEDS: Potassium Chloride Oral Tablet 10 MEQ PO (14:37)
[2020-10-14] MEDS: Cephalexin 500 MG Capsule PO ×2 (14:37→22:33)
[2020-10-14] MEDS: MELATONIN 10 MG TABLET PO (22:33)
[2020-10-14] MEDS: Atorvastatin Calcium 40 MG Tablet PO (22:34)
[2020-10-15] MEDS: Acetaminophen 500 MG Tablet 1000 MG PO ×3 (01:39→14:43)
[2020-10-15] MEDS: Ketorolac 15 MG/ML Vial IV ×3 (01:39→12:44)
[2020-10-15] MEDS: 0.9% Saline Lock 10 ML Syringe IV ×3 (01:42→12:44)
[2020-10-15 02:24] VITALS: BP 103/60; PULSE 90; RESP 16; TEMP 37; O2SAT 95
[2020-10-15 06:13] LABS: Hematocrit 32.5 % (37-47); Hemoglobin 10.5 g/dL (12.0-15.0); Mean Corp Hgb Conc 32.3 g/dL (32-36); Mean Corpuscular Hgb 28.9 pg (27.0-32.0); Mean Corpuscular Volume 89.5 fL (81-99); Mean Platelet Vol. 10.3 fl (6.2-12.0); Platelet Count 202 K/mm3 (150-450); RBC Distribution Width SD 42.6 fl (35.1-43.9); Red Blood Count 3.63 M/mm3 (4.2-5.4); White Blood Count 8.2 K/mm3 (4.4-11.0)
[2020-10-15 06:33] LABS: Anion Gap 4 (5-15); BUN 7 mg/dL (7-18); BUN/Creat Ratio 14.1 RATIO (10-20); Calcium,Total 8.5 mg/dL (8.5-10.1); Chloride 108 mmol/L (98-107); EST Glomerular Filtration Rate 129 mL/min (>60); Est Glom Filt Rate - Afr Amer 156 mL/min (>60); Estimated Creatinine Clearance 38.44 ml/min; Glucose 100 mg/dL (74-106); Potassium 3.4 mmol/L (3.5-5.1); Sodium Level 140 mmol/L (136-145)
--- NOTE | 2020-10-15 07:52 | PCM.PN.OB ---
Patient Problems: Active and Suspected Problems (Last Updated 10/14/20 @ 16:15 by Annie Lagunas) Cystocele and rectocele with complete uterovaginal prolapse (Acute) Stress incontinence (Acute) Anxiety (Acute) Hyperlipemia (Acute) Uterine procidentia (Acute) failed #4 donut pessary. Plan LAV[facility] BSO due to history of 3 cesareans that will be combo case with Yane Subjective: patient recovering well, denies CP, SOB, N, or V. patient is tolerating adequate po, and pain is controlled with oral medications. O2 per NC due to low O2 sat in night, improved and doing well now - Physical Exam Vitals/I&O's: Vital Signs Temp Pulse Resp BP Pulse Ox 98.6 F 90 16 103/60 95 10/15/20 02:24 10/15/20 02:24 10/15/20 02:24 10/15/20 02:24 10/15/20 02:24 Oxygen Flow Rate (L/min) 3 Oxygen Delivery Method Nasal Cannula Weight: 131 lb 2.801 oz Body Mass Index (BMI) 23.6 Finger Stick Blood Glucose 107 Intake and Output for Last 24 Hours 10/13/20 10/14/20 10/15/20 23:59 23:59 23:59 Intake Total 4563.5 / 4563.5 500 / 500 Output Total 2915 / 3565 2150 / 2150 Balance 1648.5 / 998.5 -1650 / -1650 General: Alert, Oriented x3, Cooperative Abdomen: Soft, Non-Distended, - - Dressings dry and intact, states no discomfort Microbiology Past 72 Hours 10/13/20 10:55 Interface Orders SARS-CoV-2 Antigen (Rapid) - Final Laboratory Results 10/14/20 06:05: POC Glucose 86 10/15/20 06:02: WBC 8.2, RBC 3.63 L, Hgb 10.5 L, Hct 32.5 L, MCV 89.5, MCH 28.9, MCHC 32.3, RDW Std Deviation 42.6, RDW Coeff of Vilma 13.0, Plt Count 202, MPV 10.3 10/15/20 06:02: Sodium 140, Potassium 3.4 L, Chloride 108 H, Carbon Dioxide 28.0, Anion Gap 4 L, BUN 7, Creatinine 0.50 L, Estim Creat Clear Calc 38.44, Est GFR (MDRD) Af Amer 156, Est GFR (MDRD) Non-Af 129, BUN/Creatinine Ratio 14.1, Glucose 100, Calcium 8.5 Current Medications Acetaminophen (Acetaminophen 500 Mg Tablet) 1,000 mg PO Q6H [facility] Last Admin: 10/15/20 01:39 Dose: 1,000 mg Documented by: Amlodipine Besylate (Amlodipine 10 Mg Tablet) 10 mg PO DAILY [facility] Atorvastatin Calcium (Atorvastatin Calcium 40 Mg Tablet) 40 mg PO DAILY@2200 [facility] Last Admin: 10/14/20 22:34 Dose: 40 mg Documented by: Buspirone HCl (Buspirone 5 Mg Tablet) 5 mg PO BID [facility] Last Admin: 10/14/20 22:33 Dose: 5 mg Documented by: Cephalexin (Cephalexin 500 Mg Capsule) 500 mg PO Q12 [facility] Last Admin: 10/14/20 22:33 Dose: 500 mg Documented by: Docusate Sodium (Docusate Sodium 100 Mg Capsule) 100 mg PO BID [facility] Last Admin: 10/14/20 22:34 Dose: 100 mg Documented by: Enoxaparin Sodium (Enoxaparin 40 Mg/0.4 Ml Syringe) 40 mg SC DAILY [facility] Lactated Ringer's () 1,000 mls @ 70 mls/hr IV .[id number] [facility] Stop: 10/15/20 12:59 Last Admin: 10/14/20 22:34 Dose: 70 mls/hr Documented by: Sodium Chloride () 250 mls @ 15 mls/hr IV .[id number] PRN PRN Reason: Saline Flush Sodium Chloride () 250 mls @ 15 mls/hr IV .[id number] PRN PRN Reason: Additional IVPB Infusion Ketorolac Tromethamine (Ketorolac 15 Mg/Ml Vial) 15 mg IV Q6H [facility] Stop: 10/15/20 18:59 Last Admin: 10/15/20 06:41 Dose: 15 mg Documented by: Magnesium Chloride (Magnesium Chloride 64 Mg Delay Rel.Tablet) 128 mg PO DAILY PRN PRN PRN Reason: Constipation Melatonin (Melatonin 10 Mg Tablet) 10 mg PO QHS [facility] Last Admin: 10/14/20 22:33 Dose: 10 mg Documented by: Nutritional Formula (Lactose Free) (Ensure Enlive 120 Ml Liquid) 120 ml PO TIDCM [facility] Ondansetron HCl (Ondansetron Odt 4 Mg Tablet) 4 mg PO Q6H PRN PRN PRN Reason: NAUSEA Oxycodone HCl (Oxycodone 5 Mg Tablet) 5 - 10 mg PO Q4H PRN PRN PRN Reason: Pain Score 4-10 Potassium Chloride (Potassium Chloride Oral Tablet 10 Meq) 10 meq PO DAILY [facility] Last Admin: 10/14/20 14:37 Dose: 10 meq Documented by: Sodium Chloride (0.9% Saline Lock 10 Ml Syringe) 10 - 40 ml IV UD PRN PRN Reason: SALINE FLUSH Last Admin: 10/15/20 06:41 Dose: 10 ml Documented by: Medical Necessity - Tobacco Use Smoking Status: Former smoker Tobacco Use: Non-smoker Assessment/Plan All Active Problems (Last Updated 10/14/20 @ 16:15 by Annie Lagunas) Amnesia (Acute) Cystocele and rectocele with complete uterovaginal prolapse (Acute) Stress incontinence (Acute) Anxiety (Acute) Hyperlipemia (Acute) Uterine procidentia (Acute) Pessary maintenance (Resolved) Cystocele with incomplete uterovaginal prolapse (Ruled-out) Routine postop care. See note/orders Dr Che for further management Plans home today
[2020-10-15 08:09] VITALS: BP 103/56; PULSE 80; RESP 16; TEMP 37; O2SAT 94
[2020-10-15 08:30] VITALS: PULSE 80
[2020-10-15] MEDS: busPIRone 5 MG Tablet PO (10:33)
[2020-10-15] MEDS: Enoxaparin 40 MG/0.4 ML Syringe SC (10:33)
[2020-10-15] MEDS: Cephalexin 500 MG Capsule PO (10:33)
[2020-10-15] MEDS: Docusate Sodium 100 MG Capsule PO (10:33)
[2020-10-15] MEDS: Potassium Chloride Oral Tablet 10 MEQ PO (10:33)
[2020-10-15] MEDS: amLODIPine 10 MG Tablet PO (10:33)
[2020-10-15 13:46] VITALS: O2SAT 91
[2020-10-15 14:05] VITALS: BP 112/66; PULSE 90; RESP 18; TEMP 36.7; O2SAT 96
== END 2020-10-15 15:54 | disposition home or self-care (01) ==
LOC: SDC 05:27 → AC 05:27 → MS3 08:25
PROVIDERS: Urology; PCP Family Medicine; Referring Provider Obstetrics & Gynecology; Visit Provider Obstetrics & Gynecology
PROC: 0UT9FZZ Resection of Uterus, Via Natural or Artificial Opening With Percutaneous Endoscopic Assistance (ICD-10-PCS; CPT 58552; principal; 2020-10-14 07:10)
PROC: (CPT 57260; 2020-10-14 07:10)
DX: N81.3 Complete uterovaginal prolapse (principal); N95.2 Postmenopausal atrophic vaginitis; N39.3 Stress incontinence (female) (male); R35.1 Nocturia; N39.0 Urinary tract infection, site not specified; Z20.822 Contact with and (suspected) exposure to COVID-19; I10 Essential (primary) hypertension; E78.5 Hyperlipidemia, unspecified; F41.9 Anxiety disorder, unspecified; Z79.1 Long term (current) use of non-steroidal anti-inflammatories (NSAID); Z79.899 Other long term (current) drug therapy; Z78.0 Asymptomatic menopausal state; Z85.828 Personal history of other malignant neoplasm of skin; Z87.891 Personal history of nicotine dependence
CPT/HCPCS: 57260; 57282; 57288; 58552; 36415; 80048; 82962; 85027; 87426; 88307; 94762; C9803; J7120; A4216; C1758; J2405; J3475

== ENCOUNTER 2024-07-07 19:57 | Emergency (ER) | payer MEDICARE, SELFPAY ==
[2024-07-07 20:00] VITALS: BP 131/82; PULSE 100; RESP 18; TEMP 36.1; O2SAT 96; BMI 24.3
== END 2024-07-07 21:05 | disposition home or self-care (01) ==
PROVIDERS: Emergency Provider Emergency Medicine; Visit Provider Emergency Medicine
DX: S60.211A Contusion of right wrist, initial encounter (principal); S61.511A Laceration without foreign body of right wrist, initial encounter; Z87.891 Personal history of nicotine dependence; F41.9 Anxiety disorder, unspecified; I10 Essential (primary) hypertension; W23.2XXA Caught, crushed, jammed or pinched between a moving and stationary object, initial encounter
CPT/HCPCS: 73110; 99282